=== PATIENT | male | born 1975 | race African-American/Black ===

== ENCOUNTER 2016-07-21 16:58 | Emergency (ER) | payer SELFPAY ==
[~2016-07-21] VITALS: Ht 182.9 cm; Wt 108.9 kg
[2016-07-21] MEDS ORDERED: LISINOPRIL 10 MG TABLET PO ONE (17:30)
--- NOTE | 2016-07-21 17:35 | PHYS DOC ---
Past Medical History Past Medical History: Hypertension Past Surgical History: Other Additional Past Surgical Histo: hernia Alcohol Use: Occasionally Drug Use: Marijuana, Phencyclidine, Other Social History Narrative: "WET" Adult General Chief Complaint Chief Complaint: DRUG ABUSE HPI HPI Patient is a 41 year old male presents emergency room via EMS transport after bystanders found the patient in the parking lot "not looking right". Evidently, patient admitted to EMS that he "smoked wet" approximately 3 hours ago. Patient states that he was in the parking lot "enjoying the moment and talking to God". Patient denies any attempted overdose of drugs. He denies any additional congestion. He denies suicidal or homicidal ideation. Of incidental note, patient does have an established history of high blood pressure. He generally takes a lisinopril/hydrochlorothiazide medication daily to control his blood pressure. He states that he stopped taking the medication approximately one month ago. He states that he does have refills at [facility], but has not on to get the medication filled. Review of Systems Review of Systems Constitutional: Denies fever or chills [] Eyes: Denies change in visual acuity, redness, or eye pain [] HENT: Denies nasal congestion or sore throat [] Respiratory: Denies cough or shortness of breath [] Cardiovascular: No additional information not addressed in HPI [] GI: Denies abdominal pain, nausea, vomiting, bloody stools or diarrhea [] : Denies dysuria or hematuria [] Musculoskeletal: Denies back pain or joint pain [] Integument: Denies rash or skin lesions [] Neurologic: Denies headache, focal weakness or sensory changes [] Endocrine: Denies polyuria or polydipsia [] Current Medications Current Medications Current Medications Medications (Trade) Dose Ordered Sig/[facility] Start Time Stop Time Status Last Admin Dose Admin Lisinopril (Prinivil) 10 mg 1X ONCE 07/21/16 17:30 07/21/16 17:31 DC 07/21/16 17:33 10 MG Allergies Allergies Allergies Coded Allergies Type Severity Reaction Last Updated Verified No Known Drug Allergies 07/05/13 No Physical Exam Physical Exam Constitutional: Well developed, well nourished, no acute distress, non-toxic appearance. HENT: Normocephalic, atraumatic, bilateral external ears normal, oropharynx moist, no oral exudates, nose normal. [] Eyes: PERRLA, EOMI, conjunctiva normal, no discharge. [] Neck: Normal range of motion, no tenderness, supple, no stridor. [] Cardiovascular:Heart rate 84 with regular rhythm, no murmur Lungs & Thorax: Bilateral breath sounds clear to auscultation [] Abdomen: Bowel sounds normal, soft, no tenderness, no masses, no pulsatile masses. [] Skin: Warm, dry, no erythema, no rash. Back: No tenderness, no CVA tenderness. [] Extremities: No tenderness, no cyanosis, no clubbing, ROM intact, no edema. [] Neurologic: Patient is alert and oriented 3. He answers questions spontaneously and appropriately. His mood is calm. Cranial nerves II through XII are grossly intact. Patient is able perform rapid alternating movement and [id number] without difficulty. Psychologic: Affect normal, judgement normal, mood normal. [] Current Patient Data Vital Signs Vital Signs Date Time Temp Pulse Resp B/P Pulse Ox O2 Delivery O2 Flow Rate FiO2 07/21/16 17:56 82 16 155/73 99 07/21/16 17:06 98.8 Room Air 98.8 EKG EKG [] Radiology/Procedures Radiology/Procedures [] Course & Med Decision Making Course & Med Decision Making Pertinent Labs and Imaging studies reviewed. (See chart for details) [] Dragon Disclaimer Dragon Disclaimer This electronic medical record was generated, in whole or in part, using a voice recognition dictation system. Departure Departure Impression: Primary Impression: Drug abuse Additional Impression: Hypertension Disposition: 01 HOME, SELF-CARE Condition: STABLE Referrals: NON,STAFF (PCP) Patient Instructions: Drug Abuse, FAQs, Hypertension, [id number] Additional Instructions: 1. Stop using drugs. 2. 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 3. Call your primary care doctor's office tomorrow morning to schedule follow- up appointment. If you do not have one, then please use the pamphlet provided for assistance in finding one. Problem Qualifiers RADHA MATUTE Jul 21, 2016 17:35
[2016-07-21 17:56] VITALS: BP 155/73
== END 2016-07-21 17:57 | disposition home or self-care (01) ==
LOC: ER 16:58
DX: F19.10 Other psychoactive substance abuse, uncomplicated (principal); I10 Essential (primary) hypertension; F12.10 Cannabis abuse, uncomplicated; F16.10 Hallucinogen abuse, uncomplicated; F17.200 Nicotine dependence, unspecified, uncomplicated
CPT/HCPCS: 99284

== ENCOUNTER 2016-11-27 23:46 | Emergency (ER) | payer SELFPAY ==
[~2016-11-27] VITALS: Ht 182.9 cm; Wt 108.9 kg
[2016-11-28] MEDS ORDERED: MORPHINE SULFATE 4 MG/ML DISP.SYRIN. IV ONE ×2 (00:45→01:15)
[2016-11-28] MEDS ORDERED: KETOROLAC 15 MG/ML VIAL. IV ONE ×2 (00:45→01:15)
[2016-11-28] MEDS ORDERED: ONDANSETRON PF 4 MG/2 ML VIAL. IV ONE ×2 (00:45→01:15)
[2016-11-28 02:27] LABS: BASO # 0.1 x10^3/uL (0.0-0.2); BASO % 1 % (0-3); EOS % 4 % (0-3); HEMATOCRIT 39.4 % (39.0-53.0); HEMOGLOBIN 13.3 g/dL (13.0-17.5); LYMPH # 3.1 x10^3/uL (1.0-4.8); LYMPH % 35 % (24-48); MEAN CORPUSCULAR HEMOGLOBIN 29 pg (25-35); MEAN CORPUSCULAR HGB CONC 34 g/dL (31-37); MEAN CORPUSCULAR VOLUME 85 fL (79-100); MONO % 10 % (0-9); NEUT % 51 % (31-73); PLATELET COUNT 303 x10^3/uL (140-400); RED BLOOD COUNT 4.64 x10^6/uL (4.30-5.70); RED CELL DISTRIBUTION WIDTH 12.8 % (11.5-14.5); WHITE BLOOD COUNT 8.9 x10^3/uL (4.0-11.0)
[2016-11-28 02:29] LABS: ALBUMIN 3.4 g/dL (3.4-5.0); ALBUMIN/GLOBULIN RATIO 0.9 (1.0-1.7); CALCIUM 8.9 mg/dL (8.5-10.1); GFR 100.1; POTASSIUM 3.7 mmol/L (3.5-5.1); TOTAL BILIRUBIN 0.4 mg/dL (0.2-1.0); TOTAL PROTEIN 7.2 g/dL (6.4-8.2)
[2016-11-28 03:00] VITALS: BP 155/96
[2016-11-28] MEDS ORDERED: IBUP-1007 PO (03:23)
--- NOTE | 2016-11-28 03:23 | PHYS DOC ---
Past Medical History Past Medical History: High Cholesterol, Hypertension Past Surgical History: Other Additional Past Surgical Histo: hernia repair Alcohol Use: Occasionally Drug Use: None Adult General Chief Complaint Chief Complaint: CHEST PAIN HPI HPI Patient is a 41 year old gentleman who presents today by EMS secondary to chest pain is been intermittent for 2 days. Patient reports she has a history of hypertension he smokes and he drinks. Patient has any drugs. Patient has any history of coronary disease diabetes CHF COPD liver longer kidney problems. Patient denies any abdominal surgery except for an internal hernia repair. Patient has any fevers shakes chills nausea vomiting diarrhea cough abdominal pain shortness of breath dysuria frequency or urgency. Patient reports he had left-sided sharp chest pain that increases with deep inspiration. Patient also complaining of right shoulder pain that occurred after falling approximately 2 weeks ago he was helping his friend. Patient reports he tripped and he hit concrete his right shoulder. Patient reports she is currently chest pain-free. Patient's physical exam is remarkable for 100% reproducible tenderness to palpation to his left anterior chest wall. Patient's lungs were clear. Abdomen was soft nontender no rebound or guarding. Patient does have bruising to his right shoulder however he has full range of motion there is no deformity noted. He shouldn't has been resting comfortably in the room without any discomfort. Patient is sleepy most of his stay. Patient is a heavy sleeper and snores very heavily. Patient's pulse ox is 99% on room air when he is alert and awake. Patient's pulse ox was dropped to the low 90s when he sleeping and sonorous. Arousable. Patient's alert awake oriented 3. Cranial nerves II-12 intact. Nonfocal neuro exam. Assessment and plan. This is a 41-year-old gentleman who presents here today complaining of sharp pleuritic left-sided chest pain and right older pain for approximately 2 weeks. Patient reports pain started after a fall when he was helping a friend of his move. Patient is clinically and hemodynamically stable this time. Patient be discharged home in stable condition. Patient does not present with any signs or symptoms that will require further ER workup. I suspicion for cardiac etiology for this gentleman is chest pain is extremely low. Patient's EKG revealed normal sinus rhythm with nonspecific ST-T wave abnormalities. Patient's CBC CMP troponin and chest x-ray were all within normal limits. Review of Systems Review of Systems Constitutional: Denies fever or chills [] Eyes: Denies change in visual acuity, redness, or eye pain [] HENT: Denies nasal congestion or sore throat [] All other review systems are negative except as documented in the history of present illness portion. Current Medications Current Medications Current Medications Medications (Trade) Dose Ordered Sig/Tiff Start Time Stop Time Status Last Admin Dose Admin Ketorolac Tromethamine (Toradol) 15 mg 1X ONCE 11/28/16 01:15 11/28/16 02:07 DC Morphine Sulfate 4 mg 1X ONCE 11/28/16 01:15 11/28/16 02:07 DC Ondansetron HCl (Zofran) 4 mg 1X ONCE 11/28/16 01:15 11/28/16 02:07 DC Allergies Allergies Allergies Coded Allergies Type Severity Reaction Last Updated Verified No Known Drug Allergies 07/05/13 No Physical Exam Physical Exam Constitutional: Well developed, well nourished, no acute distress, non-toxic appearance. [] HENT: Normocephalic, atraumatic, bilateral external ears normal, oropharynx moist, no oral exudates, nose normal. [] Eyes: PERRLA, EOMI, conjunctiva normal, no discharge. [] Neck: Normal range of motion, no tenderness, supple, no stridor. [] Cardiovascular:Heart rate regular rhythm, Lungs & Thorax: Bilateral breath sounds clear to auscultation [] Abdomen: Bowel sounds normal, soft, no tenderness, no masses, no pulsatile masses. [] Skin: Warm, dry, no erythema, no rash. [] Back: No tenderness, no CVA tenderness. [] Extremities: Tender to his right upper extremity near the shoulder was bruising. , no cyanosis, no clubbing, ROM intact, no edema. [] Neurologic: Alert and oriented X 3, normal motor function, normal sensory function, no focal deficits noted. [] Psychologic: Affect normal, judgement normal, mood normal. [] Current Patient Data Vital Signs Vital Signs Date Time Temp Pulse Resp B/P (MAP) Pulse Ox O2 Delivery O2 Flow Rate FiO2 11/28/16 01:49 76 12 146/89 (108) 90 Nasal Cannula 5.0 11/27/16 23:46 98.6 98.6 Lab Values Laboratory Tests Test 11/28/16 00:34 11/28/16 01:00 11/28/16 02:03 White Blood Count 8.9 x10^3/uL (4.0-11.0) Red Blood Count 4.64 x10^6/uL (4.30-5.70) Hemoglobin 13.3 g/dL (13.0-17.5) Hematocrit 39.4 % (39.0-53.0) Mean Corpuscular Volume 85 fL (79-100) Mean Corpuscular Hemoglobin 29 pg (25-35) Mean Corpuscular Hemoglobin Concent 34 g/dL (31-37) Red Cell Distribution Width 12.8 % (11.5-14.5) Platelet Count 303 x10^3/uL (140-400) Neutrophils (%) (Auto) 51 % (31-73) Lymphocytes (%) (Auto) 35 % (24-48) Monocytes (%) (Auto) 10 % (0-9) H Eosinophils (%) (Auto) 4 % (0-3) H Basophils (%) (Auto) 1 % (0-3) Neutrophils # (Auto) 4.5 x10^3uL (1.8-7.7) Lymphocytes # (Auto) 3.1 x10^3/uL (1.0-4.8) Monocytes # (Auto) 0.9 x10^3/uL (0.0-1.1) Eosinophils # (Auto) 0.3 x10^3/uL (0.0-0.7) Basophils # (Auto) 0.1 x10^3/uL (0.0-0.2) Troponin I Quantitative < 0.017 ng/mL (0.000-0.055) NS-Dzd-M-Type Natriuretic Peptide 26 pg/mL (0-124) Sodium Level 140 mmol/L (136-145) Potassium Level 3.7 mmol/L (3.5-5.1) Chloride Level 104 mmol/L (98-107) Carbon Dioxide Level 29 mmol/L (21-32) Anion Gap 7 (6-14) Blood Urea Nitrogen 18 mg/dL (8-26) Creatinine 1.0 mg/dL (0.7-1.3) Estimated GFR (Cockcroft-Gault) 100.1 BUN/Creatinine Ratio 18 (6-20) Glucose Level 129 mg/dL (70-99) H Calcium Level 8.9 mg/dL (8.5-10.1) Total Bilirubin 0.4 mg/dL (0.2-1.0) Aspartate Amino Transferase (AST) 25 U/L (15-37) Alanine Aminotransferase (ALT) 39 U/L (16-63) Alkaline Phosphatase 76 U/L (46-116) Total Protein 7.2 g/dL (6.4-8.2) Albumin 3.4 g/dL (3.4-5.0) Albumin/Globulin Ratio 0.9 (1.0-1.7) L Lipase 139 U/L (73-393) Glucose (Fingerstick) 109 mg/dL (70-99) H Laboratory Tests 11/28/16 00:34 Laboratory Tests 11/28/16 01:00 EKG EKG [] Radiology/Procedures Radiology/Procedures [] Course & Med Decision Making Course & Med Decision Making Pertinent Labs and Imaging studies reviewed. (See chart for details) [] Dragon Disclaimer Dragon Disclaimer This electronic medical record was generated, in whole or in part, using a voice recognition dictation system. Departure Departure Impression: Primary Impression: Pleuritic chest pain Additional Impressions: Chest wall pain Right shoulder pain Homelessness Disposition: 01 HOME, SELF-CARE Condition: IMPROVED Referrals: NO PCP (PCP) Patient Instructions: Chest Wall Pain Scripts Ibuprofen (IBUPROFEN) 600 Mg Tablet 600 MG PO PRN Q6HRS Y for PAIN, #20 TAB Prov: ZUHAIR OROZCO MD 11/28/16 Problem Qualifiers ZUHAIR OROZCO MD November 28, 2016 03:23
--- NOTE | 2016-11-28 09:54 | RAD ---
Indication: Right shoulder pain. Time of exam 0206 hours. 2 views right shoulder demonstrate normal glenohumeral and acromioclavicular alignment. The acromiohumeral space is normal. No fracture dislocation is identified. There are two amorphous calcific densities lying adjacent to the humeral head in the region of the greater tuberosity consistent with calcific tendinitis of the rotator cuff. Impression: Calcific tendinitis of the rotator cuff. No acute bony abnormality is detected.
--- NOTE | 2016-11-28 10:39 | EKG ---
[facility] [address] [place] [address] Test Date: 2016-11-27 Test Time: 23:55:38 Pat Name: ALONDRA BERGER Department: Room: Gender: M [employer]: : 1975 Requested By: ZUHAIR OROZCO Order Number: [id number] Reading MD: Memo Velazquez Measurements Intervals [place] Rate: 83 P: 28 CT: 162 QRS: 6 QRSD: 96 T: -3 QT: 360 QTc: 429 Interpretive Statements SINUS RHYTHM NON-SPECIFIC ST/T CHANGES Electronically Signed On 12-02-2016 9:29:48 CDT by Memo Velazquez
--- NOTE | 2016-11-28 13:00 | RAD ---
Sammy Gan Exam performed: One view chest. Indication: Chest pain and shortness of air Date of Service: 11/28/2016 9:57 AM Comparison: None available. Single AP upright portable view chest findings: Cardiomediastinal silhouette is within limits of normal. No acute infiltrates, effusion or pneumothorax is detected. Calcified nodule in the right midlung. The bony structures are normal. Impression: No acute cardiopulmonary process is detected. MTDD
== END 2016-11-28 03:45 | disposition home or self-care (01) ==
LOC: ER 23:46
DX: R07.89 Other chest pain (principal); S40.011A Contusion of right shoulder, initial encounter; I10 Essential (primary) hypertension; E78.00 Pure hypercholesterolemia, unspecified; F17.200 Nicotine dependence, unspecified, uncomplicated; Z59.0 Homelessness; W01.198A Fall on same level from slipping, tripping and stumbling with subsequent striking against other object, initial encounter; Y93.89 Activity, other specified; Y92.89 Other specified places as the place of occurrence of the external cause; Y99.8 Other external cause status
CPT/HCPCS: 36415; 71010; 73030; 80053; 82947; 83690; 83880; 84484; 85027; 93005; 99285-25

== ENCOUNTER 2017-08-27 04:38 | Emergency (ER) | payer SELFPAY ==
[2017-08-27 05:35] LABS: BARBITURATES NEG (NEG); BENZODIAZEPINES NEG (NEG); CANNABINOIDS POS (NEG); COCAINE NEG (NEG); METHADONE NEG (NEG); OPIATES NEG (NEG); PHENCYCLIDINE POS (NEG)
[2017-08-27 05:36] LABS: AMPHETAMINE/METHAMPHETAMINE NEG (NEG); ETHANOL, URINE NEG (NEG)
== END 2017-08-27 06:47 | disposition home or self-care (01) ==
LOC: ER 04:38
DX: F16.10 Hallucinogen abuse, uncomplicated (principal); F12.10 Cannabis abuse, uncomplicated; I10 Essential (primary) hypertension; E78.00 Pure hypercholesterolemia, unspecified
CPT/HCPCS: 80307; 93005; 99285

== ENCOUNTER 2018-10-21 00:01 | Emergency (ER) | payer SELFPAY ==
[~2018-10-21] VITALS: Ht 182.9 cm; Wt 113.4 kg
[~2018-10-21 00:01] MED LIST: HYDR12.58 PO; IBUP-1007 PO
[2018-10-21 00:40] LABS: BASO # 0.1 x10^3/uL (0.0-0.2); BASO % 1 % (0-3); EOS # 0.2 x10^3/uL (0.0-0.7); EOS % 3 % (0-3); HEMATOCRIT 44.4 % (39.0-53.0); HEMOGLOBIN 14.5 g/dL (13.0-17.5); LYMPH # 3.5 x10^3/uL (1.0-4.8); LYMPH % 40 % (24-48); MEAN CORPUSCULAR HEMOGLOBIN 28 pg (25-35); MEAN CORPUSCULAR HGB CONC 33 g/dL (31-37); MEAN CORPUSCULAR VOLUME 85 fL (79-100); MONO # 0.8 x10^3/uL (0.0-1.1); MONO % 9 % (0-9); NEUT # 4.1 x10^3uL (1.8-7.7); NEUT % 48 % (31-73); PLATELET COUNT 348 x10^3/uL (140-400); RED BLOOD COUNT 5.22 x10^6/uL (4.30-5.70); RED CELL DISTRIBUTION WIDTH 12.9 % (11.5-14.5); WHITE BLOOD COUNT 8.7 x10^3/uL (4.0-11.0)
[2018-10-21 00:50] LABS: CALCIUM 9.6 mg/dL (8.5-10.1); CREATININE 0.9 mg/dL (0.7-1.3); POTASSIUM 3.8 mmol/L (3.5-5.1)
[2018-10-21 00:57] LABS: ALBUMIN 3.9 g/dL (3.4-5.0); ALBUMIN/GLOBULIN RATIO 0.9 (1.0-1.7); MAGNESIUM 2.4 mg/dL (1.8-2.4); TOTAL BILIRUBIN 0.4 mg/dL (0.2-1.0); TOTAL PROTEIN 8.1 g/dL (6.4-8.2)
[2018-10-21] MEDS ORDERED: ASPIRIN 325 MG TABLET PO ONE (01:00)
--- NOTE | 2018-10-21 02:54 | PHYS DOC ---
Past Medical History Past Medical History: High Cholesterol, Hypertension Past Surgical History: No Surgical History Additional Past Surgical Histo: hernia repair Alcohol Use: Occasionally Drug Use: Marijuana Adult General Chief Complaint Chief Complaint: CHEST PAIN HPI HPI Patient is a 43 year old male who presents with chest pain. Patient states he has had chest pain for two weeks. The pain is a sharp pain located substernally with no radiation. He is unable to attribute any specific action or incidents to cause the pain. Nothing seems to relieve his pain. Nothing makes it worse. He denies any lightheadedness, dizziness, diaphoresis, or shortness of breath. [] Review of Systems Review of Systems Constitutional: Denies fever or chills [] Eyes: Denies redness, or eye pain [] HENT: Denies nasal congestion or sore throat [] Respiratory: Denies cough or shortness of breath [] Cardiovascular: Reports chest pain, denies palpitations[] GI: Denies abdominal pain, nausea, vomiting [] : Denies dysuria or hematuria [] Musculoskeletal: Denies back pain or joint pain [] Integument: Denies rash or skin lesions [] Neurologic: Denies headache, focal weakness[] Complete systems were reviewed and found to be within normal limits, except as documented in this note. Current Medications Current Medications Current Medications Medications (Trade) Dose Ordered Sig/[facility] Start Time Stop Time Status Last Admin Dose Admin Aspirin (Bob Aspirin) 325 mg 1X ONCE 10/21/18 01:00 10/21/18 01:01 DC 10/21/18 01:32 325 MG Allergies Allergies Allergies Coded Allergies Type Severity Reaction Last Updated Verified No Known Drug Allergies 07/05/13 No Physical Exam Physical Exam Constitutional: No acute distress, non-toxic appearance. [] HENT: Normocephalic, atraumatic. [] Eyes: EOMI, conjunctiva normal, no discharge. [] Neck: Normal range of motion, no tenderness, supple, no stridor. [] Cardiovascular:Heart rate regular rhythm, no murmur [] Lungs & Thorax: Bilateral breath sounds clear to auscultation, no rhonchi, rales, or wheezes [] Abdomen: Bowel sounds normal, soft, no tenderness. [] Skin: Warm, dry, no erythema. [] Back: No tenderness, no CVA tenderness. [] Extremities: No tenderness, no cyanosis, no edema. [] Neurologic: Alert and oriented X 3, no focal deficits noted. [] Psychologic: Affect normal, mood normal. [] Current Patient Data Vital Signs Vital Signs Date Time Temp Pulse Resp B/P (MAP) Pulse Ox O2 Delivery O2 Flow Rate FiO2 10/21/18 00:01 98.0 78 20 150/90 (110) 97 Room Air 98.0 Lab Values Laboratory Tests Test 10/21/18 00:10 10/21/18 01:53 White Blood Count 8.7 x10^3/uL (4.0-11.0) Red Blood Count 5.22 x10^6/uL (4.30-5.70) Hemoglobin 14.5 g/dL (13.0-17.5) Hematocrit 44.4 % (39.0-53.0) Mean Corpuscular Volume 85 fL (79-100) Mean Corpuscular Hemoglobin 28 pg (25-35) Mean Corpuscular Hemoglobin Concent 33 g/dL (31-37) Red Cell Distribution Width 12.9 % (11.5-14.5) Platelet Count 348 x10^3/uL (140-400) Neutrophils (%) (Auto) 48 % (31-73) Lymphocytes (%) (Auto) 40 % (24-48) Monocytes (%) (Auto) 9 % (0-9) Eosinophils (%) (Auto) 3 % (0-3) Basophils (%) (Auto) 1 % (0-3) Neutrophils # (Auto) 4.1 x10^3uL (1.8-7.7) Lymphocytes # (Auto) 3.5 x10^3/uL (1.0-4.8) Monocytes # (Auto) 0.8 x10^3/uL (0.0-1.1) Eosinophils # (Auto) 0.2 x10^3/uL (0.0-0.7) Basophils # (Auto) 0.1 x10^3/uL (0.0-0.2) Sodium Level 143 mmol/L (136-145) Potassium Level 3.8 mmol/L (3.5-5.1) Chloride Level 103 mmol/L (98-107) Carbon Dioxide Level 28 mmol/L (21-32) Anion Gap 12 (6-14) Blood Urea Nitrogen 17 mg/dL (8-26) Creatinine 0.9 mg/dL (0.7-1.3) Estimated GFR (Cockcroft-Gault) 112.0 BUN/Creatinine Ratio 19 (6-20) Glucose Level 110 mg/dL (70-99) H Calcium Level 9.6 mg/dL (8.5-10.1) Magnesium Level 2.4 mg/dL (1.8-2.4) Total Bilirubin 0.4 mg/dL (0.2-1.0) Aspartate Amino Transferase (AST) 28 U/L (15-37) Alanine Aminotransferase (ALT) 45 U/L (16-63) Alkaline Phosphatase 84 U/L (46-116) Creatine Kinase 477 U/L (39-308) H Creatine Kinase MB (Mass) 5.7 ng/mL (0.0-3.6) H Creatine Kinase MB Relative Index 1.2 % (0-4) Troponin I Quantitative < 0.017 ng/mL (0.000-0.055) < 0.017 ng/mL (0.000-0.055) JQ-Xxv-H-Type Natriuretic Peptide 14 pg/mL (0-124) Total Protein 8.1 g/dL (6.4-8.2) Albumin 3.9 g/dL (3.4-5.0) Albumin/Globulin Ratio 0.9 (1.0-1.7) L Lipase 110 U/L (73-393) Ethyl Alcohol Level < 10 mg/dL (0-10) Laboratory Tests 10/21/18 00:10 Laboratory Tests 10/21/18 00:10 EKG EKG @0009 NSR at 78bpm, NO ST elevation, J point elevation V2, incomplete RBBB Radiology/Procedures Radiology/Procedures Two-view chest x-ray Preliminary read by ER physician showed no acute pulmonary process.[] Course & Med Decision Making Course & Med Decision Making 43-year-old male presents emergency department via EMS for intermittent chest pain. Patient reported the pain has been present for two weeks. He denied any trauma or shortness of breath. Pertinent Labs and Imaging studies reviewed. Chest x-ray showed no acute pulmonary process. 2 separate troponin levels were negative. Symptomatic treatment provided with interval improvement. Patient stable for discharge with outpatient follow-up with PCP. Discussed findings and plan with patient and family, who acknowledge understanding and agreement. (See chart for details) [] Dragon Disclaimer Dragon Disclaimer This electronic medical record was generated, in whole or in part, using a voice recognition dictation system. Departure Departure Impression: Primary Impression: Chest pain Disposition: HOME, SELF-CARE Condition: STABLE Referrals: NO PCP (PCP) IVETT PHAM MD Patient Instructions: Chest Pain (Nonspecific), Onrb-yd-Dsct Problem Qualifiers Primary Impression: Chest pain Chest pain type: unspecified Qualified Codes: R07.9 - Chest pain, unspecified DINA RAYMOND DO Oct 21, 2018 02:54
[2018-10-21 03:11] VITALS: BP 132/92
--- NOTE | 2018-10-21 03:52 | RAD ---
CHEST PA LATERAL Technique: PA and lateral views of the chest were obtained. Clinical History: cough Comparison: None. Findings: The heart and pulmonary vasculature appear within normal limits. The lungs are clear. The pleural margins are clear. Impression: No acute chest process is seen. Electronically signed by: Jack Méndez III, MD (10/21/2018 3:49 AM) [facility]
--- NOTE | 2018-10-21 07:51 | EKG ---
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
== END 2018-10-21 03:34 | disposition home or self-care (01) ==
LOC: ER 00:01
DX: R07.89 Other chest pain (principal); E78.00 Pure hypercholesterolemia, unspecified; I10 Essential (primary) hypertension
CPT/HCPCS: 36415; 71046; 80053; 82553; 83690; 83735; 83880; 84484; 85025; 93005; 99284; G0480

== ENCOUNTER 2019-08-31 03:57 | Emergency (ER) | payer SELFPAY ==
[~2019-08-31] VITALS: Ht 177.8 cm; Wt 130.5 kg
[2019-08-31] MEDS ORDERED: AMMONIA AROMATIC 15% INHALANT AMPUL. ONE (04:25)
--- NOTE | 2019-08-31 04:32 | RAD ---
CHEST AP ONLY Clinical Indication: Chest pain Comparison: Two-view chest October 21, 2018. Findings: The cardiomediastinal silhouette is normal. Stable calcified granuloma right upper lung. Stable tiny calcified granuloma left lung apex. Lungs are clear. There is no pneumothorax. No pleural effusion is appreciated. No acute bone abnormality. IMPRESSION: No acute cardiopulmonary process. Electronically signed by: Rodrick Mixon MD (08/31/2019 4:29 AM) [id number]
--- NOTE | 2019-08-31 04:39 | PHYS DOC ---
Past Medical History Past Medical History: High Cholesterol, Hypertension Past Surgical History: No Surgical History Additional Past Surgical Histo: hernia repair Smoking Status: Current Every Day Smoker Alcohol Use: Occasionally Drug Use: Marijuana Social History Narrative: HX OF PCP Adult General Chief Complaint Chief Complaint: CHEST PAIN HPI HPI Patient is a 44 year old -[place] homeless male with history of high blood pressure, dyslipidemia who presents with his pain. Chest pain began this morning after being arrested at local gas station. Patient pain during transfer. No nausea vomiting, shortness of breath. Patient apparently been seen at multiple ED is for chest pain in the past several weeks. Patient states he is discharged from [facility] in treatment earlier this week. No history of coronary disease. Does report sleep apnea with difficulty staying awake. Patient is a current smoker smells of EtOH. No other acute symptoms or complaints. [] Review of Systems Review of Systems Review of symptoms as per history of present illness. All other review symptoms are negative. All other systems were reviewed and found to be within normal limits, except as documented in this note. Current Medications Current Medications Current Medications Medications (Trade) Dose Ordered Sig/Tiff Start Time Stop Time Status Last Admin Dose Admin Ammonia (Aromatic Spirit) (Amoply) 1 each STK-MED ONCE 08/31/19 04:25 08/31/19 04:25 DC Allergies Allergies Allergies Coded Allergies Type Severity Reaction Last Updated Verified No Known Drug Allergies 07/05/13 No Physical Exam Physical Exam Constitutional: Well developed, well nourished, no acute distress, non-toxic appearance. [] HENT: Normocephalic, atraumatic, bilateral external ears normal, oropharynx moist, no oral exudates, nose normal. [] Eyes: PERRLA, EOMI, conjunctiva normal, no discharge. [] Neck: Normal range of motion, no tenderness, supple, no stridor. [] Cardiovascular:Heart rate regular rhythm, no murmur [] Lungs & Thorax: Bilateral breath sounds clear to auscultation [] Abdomen: Bowel sounds normal, soft, no tenderness [] Skin: Warm, dry, no erythema, no rash. [] Back: No tenderness. [] Extremities: No tenderness, no edema. [] Neurologic: Alert and oriented X 3, cranial nerves II through XII grossly intact, normal motor function, normal sensory function, no focal deficits noted. [] Psychologic: Affect normal, judgement normal, mood normal. [] Current Patient Data Vital Signs Vital Signs Date Time Temp Pulse Resp B/P (MAP) Pulse Ox O2 Delivery O2 Flow Rate FiO2 08/31/19 03:58 98.9 92 16 144/86 (105) 95 Room Air 98.9 Lab Values Laboratory Tests Test 08/31/19 04:28 Glucose (Fingerstick) 120 mg/dL (70-99) H EKG EKG [EKG: revoewd normal sinus rhythm, no acute ST-T changes compared to EKG dated 10/22/18] Radiology/Procedures Radiology/Procedures [] Course & Med Decision Making Course & Med Decision Making Pertinent Labs and Imaging studies reviewed. (See chart for details) [post-Incarceration chest pain EKG, no acute ST-T wave changes and unchanged from a year ago. I-STAT troponin reviewed. Recommendations are discharge home with local PCP follow-up.] Dragon Disclaimer Dragon Disclaimer This electronic medical record was generated, in whole or in part, using a voice recognition dictation system. Departure Departure Impression: Primary Impression: Chest pain Disposition: 01 HOME, SELF-CARE Condition: STABLE Referrals: NO PCP (PCP) Patient Instructions: Chest Pain (Nonspecific) Additional Instructions: You were evaluated in the emergency department for chest pain. EKG and were reviewed and are normal. The exact cause of your symptoms has not been determined. Please follow-up with local primary care for further evaluation and treatment. HAMIDA BROWN DO Aug 31, 2019 04:39
[2019-08-31 05:17] VITALS: BP 171/85
--- NOTE | 2019-08-31 06:06 | EKG ---
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
== END 2019-08-31 05:20 | disposition home or self-care (01) ==
LOC: ER 03:57
DX: R07.89 Other chest pain (principal); G47.30 Sleep apnea, unspecified; E78.00 Pure hypercholesterolemia, unspecified; I10 Essential (primary) hypertension; Z98.890 Other specified postprocedural states; F17.200 Nicotine dependence, unspecified, uncomplicated
CPT/HCPCS: 71045; 82962; 84484; 93005; 99285-25

== ENCOUNTER 2019-10-02 04:12 | Emergency (ER) | payer OTHER | END 2019-10-02 04:34 | disposition home or self-care (01) | LOC: ER 04:12 | DX: R07.89 Other chest pain (principal) | CPT/HCPCS: 99283 ==

== ENCOUNTER 2019-12-01 02:40 | Emergency (ER) | payer OTHER ==
--- NOTE | 2019-12-01 06:32 | EKG ---
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
== END 2019-12-01 03:11 | disposition home or self-care (01) ==
LOC: ER 02:40
DX: S60.811A Abrasion of right wrist, initial encounter (principal); I10 Essential (primary) hypertension; Z87.891 Personal history of nicotine dependence; X58.XXXA Exposure to other specified factors, initial encounter; Y93.89 Activity, other specified; Y92.89 Other specified places as the place of occurrence of the external cause; Y99.8 Other external cause status
CPT/HCPCS: 93005; 99283

== ENCOUNTER 2020-01-25 02:06 | Emergency (ER) | payer SELFPAY ==
[~2020-01-25] VITALS: Ht 180.3 cm; Wt 110.0 kg
--- NOTE | 2020-01-25 02:33 | RAD ---
CHEST AP ONLY INDICATION: Reason: PAIN / Spl. Instructions: / History: . COMPARISON STUDY: 08/31/2019. FINDINGS: Lungs: Low lung volume. Bilateral perihilar opacities Pleura: No pleural effusion or pneumothorax. Heart and Mediastinum: Cardiomegaly. Tortuosity of the thoracic aorta. IMPRESSION: Low lung volume with bilateral perihilar opacities, which may reflect interstitial edema and/or subsegmental atelectasis. Electronically signed by: Uvaldo Dudley MD (01/25/2020 2:30 AM) [facility]
[2020-01-25 02:38] LABS: CALCIUM 8.7 mg/dL (8.5-10.1); CREATININE 1.2 mg/dL (0.7-1.3); POTASSIUM 3.7 mmol/L (3.5-5.1)
[2020-01-25 02:44] LABS: BASO # 0.1 x10^3/uL (0.0-0.2); BASO % 1 % (0-3); EOS # 0.3 x10^3/uL (0.0-0.7); EOS % 4 % (0-3); HEMOGLOBIN 13.7 g/dL (13.0-17.5); LYMPH # 3.1 x10^3/uL (1.0-4.8); LYMPH % 38 % (24-48); MEAN CORPUSCULAR HEMOGLOBIN 28 pg (25-35); MEAN CORPUSCULAR HGB CONC 33 g/dL (31-37); MEAN CORPUSCULAR VOLUME 84 fL (79-100); MONO # 0.8 x10^3/uL (0.0-1.1); MONO % 10 % (0-9); NEUT # 3.9 x10^3/uL (1.8-7.7); NEUT % 47 % (31-73); PLATELET COUNT 319 x10^3/uL (140-400); RED BLOOD COUNT 4.87 x10^6/uL (4.30-5.70); RED CELL DISTRIBUTION WIDTH 13.5 % (11.5-14.5); WHITE BLOOD COUNT 8.2 x10^3/uL (4.0-11.0)
[2020-01-25 02:44] LABS: ALBUMIN 3.8 g/dL (3.4-5.0); TOTAL PROTEIN 7.5 g/dL (6.4-8.2)
[2020-01-25 02:52] LABS: BILIRUBIN,URINE NEGATIVE (NEG); CLARITY,URINE CLOUDY; COLOR,URINE YELLOW; NITRITE,URINE NEGATIVE (NEG); PROTEIN,URINE NEGATIVE (NEG-TRACE)
[2020-01-25] MEDS ORDERED: NALOXONE 0.4 MG/ML VIAL. IV ONE (03:00)
[2020-01-25 03:03] LABS: RBC,URINE 20-40 /HPF (0-2); SQUAMOUS EPITHELIAL CELL,UR MANY /LPF
[2020-01-25 03:04] LABS: BACTERIA,URINE 0 /HPF (0-FEW); WBC,URINE RARE /HPF (0-4)
[2020-01-25 03:09] LABS: BARBITURATES NEG (NEG); BENZODIAZEPINES NEG (NEG); CANNABINOIDS NEG (NEG); COCAINE NEG (NEG); METHADONE NEG (NEG); OPIATES NEG (NEG); PHENCYCLIDINE POS (NEG)
[2020-01-25 03:11] LABS: AMPHETAMINE/METHAMPHETAMINE NEG (NEG)
--- NOTE | 2020-01-25 03:23 | RAD ---
CT HEAD WO CONTRAST Date: 01/25/2020 2:52 AM Clinical Indication: Reason: ALTERED MENTAL STATUS / Spl. Instructions: / History: Comparison: None. Technique: 5 mm axial tomographic images were obtained of the head without contrast. These were viewed on brain and bone windows. One or more of the following dose reduction techniques were utilized: Automated exposure control (AEC), Adjustment of mA and/or kV according to patient size, Use of iterative reconstruction technique such as ASiR, CT scan done according to ALARA and image gently/image wisely Findings: Left inferior frontal and right greater than left anterior temporal lobe encephalomalacia. No intra- or extra-axial mass or fluid collection. No acute hemorrhage. The ventricles are normal in size, shape, and morphology. The gannon-white matter junction is normal. The subarachnoid cisterns are patent. The visualized paranasal sinuses are normal. Nasal septum is deviated to the right. Age-indeterminate displaced left nasal bone fracture. The visualized portions of the orbits and globes are normal. The mastoid air cells are clear. Impression: 1. No acute hemorrhage, mass, or loss of gannon-white differentiation. 2. 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 3. Age-indeterminate displaced left nasal bone fracture. Correlate for focal tenderness.. Electronically signed by: Uvaldo Dudley MD (01/25/2020 3:20 AM) [facility]
--- NOTE | 2020-01-25 03:48 | PHYS DOC ---
Past Medical History Past Medical History: High Cholesterol, Hypertension (JEIMMA BUTCHER DO) Past Surgical History: No Surgical History Additional Past Surgical Histo: hernia repair (JEMIMA BUTCHER DO) Smoking Status: Current Every Day Smoker Alcohol Use: Occasionally Drug Use: Marijuana (JEMIMA BUTCHER DO) General Adult EDM: Chief Complaint: CHEST PAIN HPI: HPI: Patient is a 44 year old male brought by EMS with a chief complaint of chest pain. EMS state that patient is homeless and called EMS because he had chest pain. Patient is sleepy and is unknown if patient drank alcohol tonight or took any drugs. Patient denies obvious injuries. (JEMIMA BUTCHER DO) Review of Systems: Review of Systems: Constitutional: Denies fever or chills. [] Eyes: Denies change in visual acuity. [] HENT: Denies nasal congestion or sore throat. [] Respiratory: Denies cough or shortness of breath. [] Cardiovascular: Denies chest pain or edema. [] GI: Denies abdominal pain, nausea, vomiting, bloody stools or diarrhea. [] : Denies dysuria. [] Musculoskeletal: Denies back pain or joint pain. [] Integument: Denies rash. [] Neurologic: Denies headache, focal weakness or sensory changes. [] Endocrine: Denies polyuria or polydipsia. [] Lymphatic: Denies swollen glands. [] Psychiatric: Denies depression or anxiety. [] (JEMIMA BUTCHER DO) Heart Score: Risk Factors: Risk Factors: DM, Current or recent (<one month) smoker, HTN, HLP, family hi story of CAD, obesity. Risk Scores: Score 0 - 3: 2.5% MACE over next 6 weeks - Discharge Home Score 4 - 6: 20.3% MACE over next 6 weeks - Admit for Clinical Observation Score 7 - 10: 72.7% MACE over next 6 weeks - Early Invasive Strategies (JEMIMA BUTCHER DO) HEART Score for Chest Pain: HEART Score for Chest Pain Response (Comments) Value History Slighlty/Non-Suspicious 0 ECG Normal 0 Age < 45 0 Risk Factors 1 or 2 Risk Factors 1 Troponin < Normal Limit 0 Total 1 Current Medications: Current Medications Medications (Trade) Dose Ordered Sig/Tiff Start Time Stop Time Status Last Admin Dose Admin Naloxone HCl (Narcan) 0.4 mg 1X ONCE 01/25/20 03:00 01/25/20 03:01 DC (JEMIMA BUTCHER DO) Allergies: Allergies: Allergies Coded Allergies Type Severity Reaction Last Updated Verified No Known Drug Allergies 07/05/13 No (JEMIMA BUTCHER DO) Physical Exam: PE: Constitutional: Well developed, well nourished, no acute distress, non-toxic appearance. [] HENT: Normocephalic, atraumatic, bilateral external ears normal, oropharynx moist, no oral exudates, nose normal. [] Eyes: PERRLA, EOMI, conjunctiva normal, no discharge. [] Neck: Normal range of motion, no tenderness, supple, no stridor. [] Cardiovascular:Heart rate regular rhythm, no murmur [] Lungs & Thorax: Bilateral breath sounds clear to auscultation [] Abdomen: Bowel sounds normal, soft, no tenderness, no masses, no pulsatile masses. [] Skin: Warm, dry, no erythema, no rash. [] Back: No tenderness, no CVA tenderness. [] Extremities: No tenderness, no cyanosis, no clubbing, ROM intact, no edema. [] Neurologic: Alert and oriented X 3, normal motor function, normal sensory function, no focal deficits noted. [] Psychologic: Affect normal, judgement normal, mood normal. [] (JEMIMA BUTCHER DO) Current Patient Data: Labs: Laboratory Tests Test 01/25/20 02:22 01/25/20 02:36 01/25/20 02:42 Sodium Level 143 mmol/L (136-145) Potassium Level 3.7 mmol/L (3.5-5.1) Chloride Level 105 mmol/L (98-107) Carbon Dioxide Level 32 mmol/L (21-32) Anion Gap 6 (6-14) Blood Urea Nitrogen 14 mg/dL (8-26) Creatinine 1.2 mg/dL (0.7-1.3) Estimated GFR (Cockcroft-Gault) 80.0 BUN/Creatinine Ratio 12 (6-20) Glucose Level 110 mg/dL (70-99) H Calcium Level 8.7 mg/dL (8.5-10.1) Total Bilirubin 1.0 mg/dL (0.2-1.0) Aspartate Amino Transferase (AST) 29 U/L (15-37) Alanine Aminotransferase (ALT) 44 U/L (16-63) Alkaline Phosphatase 86 U/L (46-116) Troponin I Quantitative < 0.017 ng/mL (0.000-0.055) Total Protein 7.5 g/dL (6.4-8.2) Albumin 3.8 g/dL (3.4-5.0) Albumin/Globulin Ratio 1.0 (1.0-1.7) Ethyl Alcohol Level < 10 mg/dL (0-10) White Blood Count 8.2 x10^3/uL (4.0-11.0) Red Blood Count 4.87 x10^6/uL (4.30-5.70) Hemoglobin 13.7 g/dL (13.0-17.5) Hematocrit 41.0 % (39.0-53.0) Mean Corpuscular Volume 84 fL (79-100) Mean Corpuscular Hemoglobin 28 pg (25-35) Mean Corpuscular Hemoglobin Concent 33 g/dL (31-37) Red Cell Distribution Width 13.5 % (11.5-14.5) Platelet Count 319 x10^3/uL (140-400) Neutrophils (%) (Auto) 47 % (31-73) Lymphocytes (%) (Auto) 38 % (24-48) Monocytes (%) (Auto) 10 % (0-9) H Eosinophils (%) (Auto) 4 % (0-3) H Basophils (%) (Auto) 1 % (0-3) Neutrophils # (Auto) 3.9 x10^3/uL (1.8-7.7) Lymphocytes # (Auto) 3.1 x10^3/uL (1.0-4.8) Monocytes # (Auto) 0.8 x10^3/uL (0.0-1.1) Eosinophils # (Auto) 0.3 x10^3/uL (0.0-0.7) Basophils # (Auto) 0.1 x10^3/uL (0.0-0.2) Lactic Acid Level 0.6 mmol/L (0.4-2.0) Urine Collection Type Unknown Urine Color Yellow Urine Clarity Cloudy Urine pH 6.0 (<5.0-8.0) Urine Specific [place] >=1.030 (1.000-1.030) Urine Protein Negative mg/dL (NEG-TRACE) Urine Glucose (UA) Negative mg/dL (NEG) Urine Ketones (Stick) Negative mg/dL (NEG) Urine Blood Moderate (NEG) Urine Nitrite Negative (NEG) Urine Bilirubin Negative (NEG) Urine Urobilinogen Dipstick 1.0 mg/dL (0.2 mg/dL) Urine Leukocyte Esterase Negative (NEG) Urine RBC 20-40 /HPF (0-2) Urine WBC Rare /HPF (0-4) Urine Squamous Epithelial Cells Many /LPF Urine Bacteria 0 /HPF (0-FEW) Urine Mucus Marked /LPF Urine Opiates Screen Neg (NEG) Urine Methadone Screen Neg (NEG) Urine Barbiturates Neg (NEG) Urine Phencyclidine Screen Pos (NEG) Urine Amphetamine/Methamphetamine Neg (NEG) Urine Benzodiazepines Screen Neg (NEG) Urine Cocaine Screen Neg (NEG) Urine Cannabinoids Screen Neg (NEG) Urine Ethyl Alcohol Neg (NEG) Laboratory Tests 01/25/20 02:36 Laboratory Tests 01/25/20 02:22 Vital Signs: Vital Signs Date Time Temp Pulse Resp B/P (MAP) Pulse Ox O2 Delivery O2 Flow Rate FiO2 01/25/20 02:07 98.2 74 8 159/99 (119) 94 Room Air 98.2 (JEMIMA BUTCHER DO) EKG: EKG: [EKG interpretation 2: 12 AM on 01/25/2020 HR: 74 Sinus rhythm Regular intervals Normal axis Nonspecific ST changes ] (JEMIMA BUTCHER DO) Radiology/Procedures: Radiology/Procedures: [] Impression: CXR FINDINGS: Lungs: Low lung volume. Bilateral perihilar opacities Pleura: No pleural effusion or pneumothorax. Heart and Mediastinum: Cardiomegaly. Tortuosity of the thoracic aorta. IMPRESSION: Low lung volume with bilateral perihilar opacities, which may reflect interstitial edema and/or subsegmental atelectasis. CT HEAD Findings: Left inferior frontal and right greater than left anterior temporal lobe encephalomalacia. No intra- or extra-axial mass or fluid collection. No acute hemorrhage. The ventricles are normal in size, shape, and morphology. The gannon-white matter junction is normal. The subarachnoid cisterns are patent. The visualized paranasal sinuses are normal. Nasal septum is deviated to the right. Age-indeterminate displaced left nasal bone fracture. The visualized portions of the orbits and globes are normal. The mastoid air cells are clear. Impression: 1. No acute hemorrhage, mass, or loss of gannon-white differentiation. 2. 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 3. Age-indeterminate displaced left nasal bone fracture. Correlate for focal tenderness.. (JEMIMA BUTCHER DO) Course & Med Decision Making: Course & Med Decision Making Pertinent Labs and Imaging studies reviewed. (See chart for details) Ordered labs, chest x-ray, EKG, troponin Also ordered CT head as patient is falling asleep CT head does not show any acute intracranial process There is however age-indeterminate left nasal fracture Labs are within normal limits Troponin is negative EKG does not show any acute changes Chest x-ray does not show any acute cardiopulmonary process Patient's UDS is positive for PCP Will order repeat troponin. PATIENT CARE TURNED OVER TO DR TYLER AT SHIFT CHANGE. (JEMIMA BUTCHER DO) Dragon Disclaimer: Dragon Disclaimer: This electronic medical record was generated, in whole or in part, using a voice recognition dictation system. (JEMIMA BUTCHER DO) Departure Departure Impression: Primary Impression: Substance abuse Additional Impressions: HTN (hypertension) Chest pain Disposition: HOME, SELF-CARE Condition: IMPROVED Referrals: DINA BROWN MD please call this doctor for outpatient follow up Patient Instructions: Chest Pain (Nonspecific), Hypertension, Substance Abuse-B rief Scripts Lisinopril (LISINOPRIL) 20 Mg Tablet 1 TAB PO DAILY, #30 TAB 5 Refills Prov: REINA TYLER DO 01/25/20 Justicifation of Admission Dx: Justifications for Admission: Justification of Admission Dx: N/A (REINA TYLER DO) JEMIMA BUTCHER DO Jan 25, 2020 03:48 REINA TYLER DO Jan 25, 2020 09:29
[2020-01-25] MEDS ORDERED: cloNIDine HCL 0.1 MG TABLET PO ONE (07:45)
--- NOTE | 2020-01-25 09:08 | EKG ---
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
[2020-01-25 09:25] VITALS: BP 175/102
[2020-01-25] MEDS ORDERED: LISI-334 PO (09:28)
== END 2020-01-25 09:36 | disposition home or self-care (01) ==
LOC: ER 02:06
DX: I10 Essential (primary) hypertension (principal); R07.89 Other chest pain; F12.10 Cannabis abuse, uncomplicated; E78.00 Pure hypercholesterolemia, unspecified; F17.200 Nicotine dependence, unspecified, uncomplicated; Z98.890 Other specified postprocedural states; Z59.0 Homelessness
CPT/HCPCS: 36415; 70450; 71045; 80053; 80307; 81001; 83605; 84484; 85025; 93005; 99285; G0480

== ENCOUNTER 2020-05-09 02:36 | Emergency (ER) | payer SELFPAY ==
[~2020-05-09] VITALS: Ht 182.9 cm; Wt 118.2 kg
[~2020-05-09 02:36] MED LIST changes: +LISI-334 PO
[2020-05-09 03:04] LABS: BASO # 0.1 x10^3/uL (0.0-0.2); BASO % 1 % (0-3); EOS # 0.3 x10^3/uL (0.0-0.7); EOS % 4 % (0-3); HEMATOCRIT 40.3 % (39.0-53.0); HEMOGLOBIN 13.6 g/dL (13.0-17.5); LYMPH # 3.1 x10^3/uL (1.0-4.8); LYMPH % 43 % (24-48); MEAN CORPUSCULAR HEMOGLOBIN 28 pg (25-35); MEAN CORPUSCULAR HGB CONC 34 g/dL (31-37); MEAN CORPUSCULAR VOLUME 84 fL (79-100); MONO # 0.6 x10^3/uL (0.0-1.1); MONO % 9 % (0-9); NEUT # 3.1 x10^3/uL (1.8-7.7); NEUT % 44 % (31-73); PLATELET COUNT 322 x10^3/uL (140-400); RED BLOOD COUNT 4.81 x10^6/uL (4.30-5.70); RED CELL DISTRIBUTION WIDTH 12.9 % (11.5-14.5); WHITE BLOOD COUNT 7.1 x10^3/uL (4.0-11.0)
--- NOTE | 2020-05-09 03:05 | PHYS DOC ---
Past Medical History Past Medical History: High Cholesterol, Hypertension Past Surgical History: Other Additional Past Surgical Histo: HERNIA Smoking Status: Smoker Current Stat Unk[place] Alcohol Use: None Drug Use: Marijuana General Adult EDM: Chief Complaint: CHEST PAIN HPI: HPI: Patient is a 45 year old male with a past medical history hypertension presents with a chief complaint of chest pain. Patient states he has had chest pain for 1 week it is located in the center of his chest is been constant but fluctuates in intensity. He denies any associated nausea vomiting or shortness of breath. Patient denies any exacerbating or alleviating factors. Patient is currently homeless. States he was walking to [place] when he called 911. On exam patient is in no acute distress. EKG performed shows no acute abnormalities. Review of Systems: Review of Systems: Constitutional: Denies fever or chills. [] Eyes: Denies change in visual acuity. [] HENT: Denies nasal congestion or sore throat. [] Respiratory: Denies cough or shortness of breath. [] Cardiovascular: Denies chest pain or edema. [] GI: Denies abdominal pain, nausea, vomiting, bloody stools or diarrhea. [] : Denies dysuria. [] Musculoskeletal: Denies back pain or joint pain. [] Integument: Denies rash. [] Neurologic: Denies headache, focal weakness or sensory changes. [] Endocrine: Denies polyuria or polydipsia. [] Lymphatic: Denies swollen glands. [] Psychiatric: Denies depression or anxiety. [] Heart Score: HEART Score for Chest Pain: HEART Score for Chest Pain Response (Comments) Value History Slighlty/Non-Suspicious 0 ECG Normal 0 Age < 45 0 Risk Factors 1 or 2 Risk Factors 1 Troponin < Normal Limit 0 Total 1 Risk Factors: Risk Factors: DM, Current or recent (<one month) smoker, HTN, HLP, family history of CAD, obesity. Risk Scores: Score 0 - 3: 2.5% MACE over next 6 weeks - Discharge Home Score 4 - 6: 20.3% MACE over next 6 weeks - Admit for Clinical Observation Score 7 - 10: 72.7% MACE over next 6 weeks - Early Invasive Strategies Allergies: Allergies: Allergies Coded Allergies Type Severity Reaction Last Updated Verified No Known Drug Allergies 07/05/13 No Physical Exam: PE: Constitutional: Well developed, well nourished, no acute distress, non-toxic appearance. [] HENT: Normocephalic, atraumatic, bilateral external ears normal, oropharynx moist, no oral exudates, nose normal. [] Eyes: PERRLA, EOMI, conjunctiva normal, no discharge. [] Neck: Normal range of motion, no tenderness, supple, no stridor. [] Cardiovascular:Heart rate regular rhythm, no murmur [] Lungs & Thorax: Bilateral breath sounds clear to auscultation [] Abdomen: Bowel sounds normal, soft, no tenderness, no masses, no pulsatile masses. [] Skin: Warm, dry, no erythema, no rash. [] Back: No tenderness, no CVA tenderness. [] Extremities: No tenderness, no cyanosis, no clubbing, ROM intact, no edema. [] Neurologic: Alert and oriented X 3, normal motor function, normal sensory function, no focal deficits noted. [] Psychologic: Affect normal, judgement normal, mood normal. [] Current Patient Data: Vital Signs: Vital Signs Date Time Temp Pulse Resp B/P (MAP) Pulse Ox O2 Delivery O2 Flow Rate FiO2 05/09/20 02:36 98.2 76 16 156/87 (110) 95 Room Air 98.2 EKG: EKG: time 0240 rate 75 normal sinus rhythm no stemi[] Radiology/Procedures: Radiology/Procedures: [] Impression: HISTORY: Chest pain AP view was taken of the chest. Patient's taken a poor inspiration. Heart is normal in size. There are no definite infiltrates. IMPRESSION: 1. Poor inspiration. 2. No acute infiltrates. Electronically signed by: Carrington Hawk MD (05/09/2020 4:08 AM) [id number] Course & Med Decision Making: Course & Med Decision Making Pertinent Labs and Imaging studies reviewed. (See chart for details) [] Dragon Disclaimer: Dragon Disclaimer: This electronic medical record was generated, in whole or in part, using a voice recognition dictation system. Departure Departure Impression: Primary Impression: Chest pain Referrals: NO PCP (PCP) WEST ROCHA DO May 09, 2020 03:05
[2020-05-09 03:14] LABS: CALCIUM 8.5 mg/dL (8.5-10.1); GFR 98.2; POTASSIUM 3.7 mmol/L (3.5-5.1)
[2020-05-09 03:22] LABS: ALBUMIN 3.5 g/dL (3.4-5.0); TOTAL BILIRUBIN 0.3 mg/dL (0.2-1.0); TOTAL PROTEIN 7.1 g/dL (6.4-8.2)
[2020-05-09] MEDS ORDERED: ASPIRIN CHEWABLE 81 MG TABLET. PO ONE (03:45)
[2020-05-09] MEDS: KETOROLAC 60 MG/2 ML VIAL. IM ONE ×2 (03:56→05:00)
--- NOTE | 2020-05-09 04:11 | RAD ---
AP chest. HISTORY: Chest pain AP view was taken of the chest. Patient's taken a poor inspiration. Heart is normal in size. There are no definite infiltrates. IMPRESSION: 1. Poor inspiration. 2. No acute infiltrates. Electronically signed by: Carrington Hawk MD (05/09/2020 4:08 AM) [id number]
[2020-05-09] MEDS ORDERED: ONDANSETRON PF 4 MG/2 ML VIAL. IV PRN (04:45)
[2020-05-09] MEDS ORDERED: MORPHINE SULFATE 4 MG/ML VIAL. IV PRN (04:45)
[2020-05-09 05:04] VITALS: BP 194/93
--- NOTE | 2020-05-09 05:13 | EKG ---
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
== END 2020-05-09 05:55 | disposition home or self-care (01) ==
LOC: ER 02:36
DX: R07.89 Other chest pain (principal); I10 Essential (primary) hypertension; E78.00 Pure hypercholesterolemia, unspecified; F17.200 Nicotine dependence, unspecified, uncomplicated
CPT/HCPCS: 36415; 71045; 80053; 84484; 85025; 93005; 99285; J1885

== ENCOUNTER 2020-05-10 23:19 | Emergency (ER) | payer SELFPAY ==
[~2020-05-10] VITALS: Ht 182.9 cm; Wt 118.0 kg
[2020-05-10] MEDS ORDERED: IOHEXOL 350 MG/ML 100 ML VIAL. ONE (23:42)
--- NOTE | 2020-05-10 23:44 | PHYS DOC ---
Past Medical History Past Medical History: High Cholesterol, Hypertension Past Surgical History: Other Additional Past Surgical Histo: HERNIA Smoking Status: Smoker Current Stat Unkno Alcohol Use: None Drug Use: Marijuana General Adult EDM: Chief Complaint: CHEST PAIN HPI: HPI: History obtained from patient. Patient is a 45-year-old male with a past medical history notable for hypertension, hyperlipidemia, tobacco abuse who presents with chief complaint of chest pain. He states he had constant sharp chest pain for the past week. He states it is substernal and occasionally radiates to his epigastric region. He has not tried any medicine to help with this. He states nothing seems to alleviate or exacerbate his symptoms. Denies any associated shortness of breath. Notes one episode of vomiting earlier today. Denies any diaphoresis. Denies any exertional component to his symptoms. Denies any history of coronary artery disease or invasive cardiac testing. Denies drug or alcohol abuse. Denies back pain. Denies syncope. Denies any feelings of irregular rapid heartbeat. Denies cough or fever. Denies known exposure to coronavirus. No other complaints. Review of Systems: Review of Systems: Constitutional: Denies fever or chills. [] Eyes: Denies change in visual acuity. [] HENT: Denies nasal congestion or sore throat. [] Respiratory: Denies cough or shortness of breath. [] Cardiovascular: Positive for chest pain GI: Denies abdominal pain, nausea, vomiting, bloody stools or diarrhea. [] : Denies dysuria. [] Musculoskeletal: Denies back pain or joint pain. [] Integument: Denies rash. [] Neurologic: Denies headache, focal weakness or sensory changes. [] Endocrine: Denies polyuria or polydipsia. [] Lymphatic: Denies swollen glands. [] Psychiatric: Denies depression or anxiety. [] Heart Score: HEART Score for Chest Pain: HEART Score for Chest Pain Response (Comments) Value History Slighlty/Non-Suspicious 0 ECG Nonspecific Repolarizatio 1 Age < 45 0 Risk Factors 1 or 2 Risk Factors 1 Troponin < Normal Limit 0 Total 2 Risk Factors: Risk Factors: DM, Current or recent (<one month) smoker, HTN, HLP, family history of CAD, obesity. Risk Scores: Score 0 - 3: 2.5% MACE over next 6 weeks - Discharge Home Score 4 - 6: 20.3% MACE over next 6 weeks - Admit for Clinical Observation Score 7 - 10: 72.7% MACE over next 6 weeks - Early Invasive Strategies Current Medications: Current Medications Medications (Trade) Dose Ordered Sig/Tiff Start Time Stop Time Status Last Admin Dose Admin Iohexol (Omnipaque 350 Mg/ml) 100 ml 1X ONCE 05/10/20 23:45 05/10/20 23:46 UNV Allergies: Allergies: Allergies Coded Allergies Type Severity Reaction Last Updated Verified No Known Drug Allergies 07/05/13 No Physical Exam: PE: Constitutional: Well developed, well nourished, no acute distress, non-toxic appearance. [] HENT: Normocephalic, atraumatic, bilateral external ears normal, oropharynx moist, no oral exudates, nose normal. [] Eyes: PERRLA, EOMI, conjunctiva normal, no discharge. [] Neck: Normal range of motion, no tenderness, supple, no stridor. [] Cardiovascular:Heart rate regular rhythm, no murmur [] Lungs & Thorax: Bilateral breath sounds clear to auscultation [] Abdomen: Soft, nontender, nonacute abdomen. No involuntary guarding or rigidity noted. No acute peritonitis. Skin: Warm, dry, no erythema, no rash. [] Back: No tenderness, no CVA tenderness. [] Extremities: No tenderness, no cyanosis, no clubbing, ROM intact, no edema. [] Neurologic: Alert and oriented X 3, normal motor function, normal sensory function, no focal deficits noted. [] Psychologic: Affect normal, judgement normal, mood normal. [] Current Patient Data: Labs: Laboratory Tests Test 05/10/20 23:34 White Blood Count 7.3 x10^3/uL Red Blood Count 5.15 x10^6/uL Hemoglobin 14.6 g/dL Hematocrit 43.0 % Mean Corpuscular Volume 83 fL Mean Corpuscular Hemoglobin 28 pg Mean Corpuscular Hemoglobin Concent 34 g/dL Red Cell Distribution Width 13.1 % Platelet Count 344 x10^3/uL Neutrophils (%) (Auto) 44 % Lymphocytes (%) (Auto) 44 % Monocytes (%) (Auto) 8 % Eosinophils (%) (Auto) 3 % Basophils (%) (Auto) 1 % Neutrophils # (Auto) 3.2 x10^3/uL Lymphocytes # (Auto) 3.2 x10^3/uL Monocytes # (Auto) 0.6 x10^3/uL Eosinophils # (Auto) 0.2 x10^3/uL Basophils # (Auto) 0.1 x10^3/uL Sodium Level 143 mmol/L Potassium Level 3.7 mmol/L Chloride Level 105 mmol/L Carbon Dioxide Level 29 mmol/L Anion Gap 9 Blood Urea Nitrogen 15 mg/dL Creatinine 1.0 mg/dL Estimated GFR (Cockcroft-Gault) 98.2 BUN/Creatinine Ratio 15 Glucose Level 121 mg/dL Calcium Level 9.1 mg/dL Total Bilirubin 0.4 mg/dL Aspartate Amino Transf (AST/SGOT) 23 U/L Alanine Aminotransferase (ALT/SGPT) 38 U/L Alkaline Phosphatase 90 U/L Troponin I Quantitative < 0.017 ng/mL Total Protein 7.6 g/dL Albumin 3.6 g/dL Albumin/Globulin Ratio 0.9 Lipase 117 U/L Current Medications Medications (Trade) Dose Ordered Sig/Tiff Route PRN Reason Start Time Stop Time Status Last Admin Dose Admin Iohexol (Omnipaque 350 Mg/ml) 100 ml 1X ONCE IV 05/11/20 00:00 05/11/20 00:01 DC 05/10/20 23:43 Info (CONTRAST GIVEN -- Rx MONITORING) 1 each PRN DAILY PRN MC SEE COMMENTS 05/10/20 23:45 05/12/20 23:44 Iohexol (Omnipaque 350 Mg/ml) 100 ml STK-MED ONCE .ROUTE 05/10/20 23:42 05/10/20 23:43 DC Vital Signs: Vital Signs Date Time Temp Pulse Resp B/P (MAP) Pulse Ox O2 Delivery O2 Flow Rate FiO2 05/10/20 23:20 98.5 89 20 178/92 (120) 95 Room Air 98.5 EKG: EKG: [] EKG consistent with normal sinus rhythm. Ventricular rate of 82 bpm. Rogers normal. Flipped T waves noted in the inferior lateral precordial leads. No ST segment elevation appreciated. Flipped T waves new from previous. Radiology/Procedures: Radiology/Procedures: [facility] [address] [place] [address] IMAGING REPORT Signed PATIENT: ALONDRA BERGER Kain ACCOUNT: [id number] : 1975 LOCATION: ER AGE: 45 SEX: M EXAM STATUS: REG ER ORD. PHYSICIAN: DEBORA YANG DO REASON: CHEST PAIN, eval for PE PROCEDURE: CT ANGIOGRAPHY CHEST CT arteriogram of the chest HISTORY: Chest pain CT arteriogram of the chest was done using 100 mL Omnipaque 350 contrast. Sagittal and coronal MIP images were reconstructed. Thyroid is homogeneous. Visualized portions the liver and spleen are unremarkable. Adrenal glands are normal. There is a calcified granuloma in the right upper lobe. There is a 4 mm nodule in the right middle lobe on image #[address] 6 series 3. Fleischner Society guidelines recommend an optional one-year follow-up for high risk individuals. Contrast opacification of the aorta and pulmonary veins is better than the pulmonary arteries. There is no central pulmonary embolus. IMPRESSION: 1. Somewhat limited due to late timing of images relative to the bolus. 2. No central pulmonary embolus. 3. No acute infiltrates. 4. Small middle lobe pulmonary nodule. PQRS Compliance Statement: One or more of the following individualized dose reduction techniques were utilized for this examination: 1. Automated exposure control 2. Adjustment of the mA and/or kV according to patient size 3. Use of iterative reconstruction technique Electronically signed by: Carrington Guillaume MD (05/11/2020 12:25 AM) [id number] DICTATED and SIGNED BY: CARRINGTON GUILLAUME MD DATE: 05/11/20 0025 [] Course & Med Decision Making: Course & Med Decision Making Pertinent Labs and Imaging studies reviewed. (See chart for details) [] Patient is a 45-year-old male who presents with chief complaint of constant chest pain over the past week. Denies any exertional component to his symptoms. EKG shows nonspecific T wave abnormalities. Troponin negative. I do not feel repeat troponin is indicated given he states the pain is been constant for 1 week. He does state however he is currently asymptomatic. CT PE study was obtained and was negative for acute abnormality. Pulmonary nodule identified and patient notified of this. Patient is overall appropriate for outpatient ma hermilo my opinion. Low suspicion for ACS. Low risk heart score. Return precautions were discussed and understood. Was instructed follow-up with his primary care physician in the next 2 to 3 days. Smoking cessation counseling was administered. Stable for discharge. I provided verbal discharge instructions regarding their emergency department diagnosis. If you had any diagnostic studies ( Labs or Xray's, CAT scan, Ultrasound ) have your PCP (Primary Care Physician) review them with you since there may be results that require further follow up or investigation. Prognosis, expected clinical course, and return precautions were reviewed. I answered the patients questions and instructed them to return if any new or worsening symptoms develop. The patient expressed understanding of the instructions and reported that all of their questions had been answered. Scarosso Disclaimer: Scarosso Disclaimer: This electronic medical record was generated, in whole or in part, using a voice recognition dictation system. Departure Departure Impression: Primary Impression: Chest pain Qualified Codes: R07.9 - Chest pain, unspecified Additional Impression: Pulmonary nodule Disposition: 01 DC HOME SELF CARE/HOMELESS Condition: STABLE Referrals: NO PCP (PCP) Patient Instructions: Chest Pain (Nonspecific), Pulmonary Nodule Additional Instructions: Please follow-up with your primary care physician in the next 2 to 3 days. [facility] [address] [place] [address] [facility] [address] [place] [address] [facility] [address] [facility] [place] [address] [facility] [address] [place] [address] [facility] [address] [place] [address] [address] [place] [address] [address] [place] [address] [place] [address] [facility] [address] [place] [address] [facility] [address] [place] [address] [facility] [address] [place] [address] DEBORA YANG DO May 10, 2020 23:44
[2020-05-10 23:45] LABS: BASO # 0.1 x10^3/uL (0.0-0.2); BASO % 1 % (0-3); EOS # 0.2 x10^3/uL (0.0-0.7); EOS % 3 % (0-3); HEMOGLOBIN 14.6 g/dL (13.0-17.5); LYMPH # 3.2 x10^3/uL (1.0-4.8); LYMPH % 44 % (24-48); MEAN CORPUSCULAR HEMOGLOBIN 28 pg (25-35); MEAN CORPUSCULAR HGB CONC 34 g/dL (31-37); MEAN CORPUSCULAR VOLUME 83 fL (79-100); MONO # 0.6 x10^3/uL (0.0-1.1); MONO % 8 % (0-9); NEUT # 3.2 x10^3/uL (1.8-7.7); NEUT % 44 % (31-73); PLATELET COUNT 344 x10^3/uL (140-400); RED BLOOD COUNT 5.15 x10^6/uL (4.30-5.70); RED CELL DISTRIBUTION WIDTH 13.1 % (11.5-14.5); WHITE BLOOD COUNT 7.3 x10^3/uL (4.0-11.0)
[2020-05-10] MEDS ORDERED: CONTRAST GIVEN. MC PRN (23:45)
[2020-05-10 23:55] LABS: CALCIUM 9.1 mg/dL (8.5-10.1); GFR 98.2; POTASSIUM 3.7 mmol/L (3.5-5.1)
[2020-05-11] MEDS ORDERED: IOHEXOL 350 MG/ML 100 ML VIAL. IV ONE
[2020-05-11 00:02] LABS: ALBUMIN 3.6 g/dL (3.4-5.0); ALBUMIN/GLOBULIN RATIO 0.9 (1.0-1.7); TOTAL BILIRUBIN 0.4 mg/dL (0.2-1.0); TOTAL PROTEIN 7.6 g/dL (6.4-8.2)
--- NOTE | 2020-05-11 00:28 | RAD ---
CT arteriogram of the chest HISTORY: Chest pain CT arteriogram of the chest was done using 100 mL Omnipaque 350 contrast. Sagittal and coronal MIP images were reconstructed. Thyroid is homogeneous. Visualized portions the liver and spleen are unremarkable. Adrenal glands are normal. There is a calcified granuloma in the right upper lobe. There is a 4 mm nodule in the right middle lobe on image #[address] 6 series 3. Fleischner Society guidelines recommend an optional one-year follow-up for high risk individuals. Contrast opacification of the aorta and pulmonary veins is better than the pulmonary arteries. There is no central pulmonary embolus. IMPRESSION: 1. Somewhat limited due to late timing of images relative to the bolus. 2. No central pulmonary embolus. 3. No acute infiltrates. 4. Small middle lobe pulmonary nodule. PQRS Compliance Statement: One or more of the following individualized dose reduction techniques were utilized for this examination: 1. Automated exposure control 2. Adjustment of the mA and/or kV according to patient size 3. Use of iterative reconstruction technique Electronically signed by: Carrington Hawk MD (05/11/2020 12:25 AM) [id number]
[2020-05-11 01:00] VITALS: BP 143/80
== END 2020-05-11 01:37 | disposition home or self-care (01) ==
LOC: ER 23:19
DX: R07.2 Precordial pain (principal); R91.1 Solitary pulmonary nodule; E78.00 Pure hypercholesterolemia, unspecified; I10 Essential (primary) hypertension; Z72.0 Tobacco use
CPT/HCPCS: 36415; 71275; 80053; 83690; 84484; 85025; 93005; 99285; Q9967

== ENCOUNTER 2020-08-13 01:56 | Emergency (ER) | payer SELFPAY ==
[~2020-08-13] VITALS: Ht 182.9 cm; Wt 104.5 kg
--- NOTE | 2020-08-13 03:25 | PHYS DOC ---
Past Medical History Past Medical History: High Cholesterol, Hypertension Additional Past Medical Histor: CHEST PAIN (RAFIA VASQUEZ MD) Past Surgical History: Other Additional Past Surgical Histo: HERNIA (RAFIA VASQUEZ MD) Smoking Status: Smoker Current Stat Unkno Alcohol Use: None Drug Use: Marijuana Social History Narrative: PATIENT STATED PCP (RAFIA VASQUEZ MD) Adult General Chief Complaint Chief Complaint: ALCOHOL INTOXICATION HPI HPI Patient is a 45 year old male with a known past medical history of polysubstance abuse presents emergency department for altered mental status and possible intoxication. EMS state that he was wandering outside in a good [place] brought him into the hotel where he saw that he was acting bizarrely. Patient admits to alcohol and PCPs use. Otherwise having difficulty providing significant history (RAFIA VASQUEZ MD) Review of Systems Review of Systems Constitutional: Denies fever or chills [] Eyes: Denies change in visual acuity, redness, or eye pain [] HENT: Denies nasal congestion or sore throat [] Respiratory: Denies cough or shortness of breath [] Cardiovascular: No additional information not addressed in HPI [] GI: Denies abdominal pain, nausea, vomiting, bloody stools or diarrhea [] : Denies dysuria or hematuria [] Musculoskeletal: Denies back pain or joint pain [] Integument: Denies rash or skin lesions [] Neurologic: Denies headache, focal weakness or sensory changes [] Endocrine: Denies polyuria or polydipsia [] All other systems were reviewed and found to be within normal limits, except as documented in this note. (RAFIA VASQUEZ MD) Allergies Allergies Allergies Coded Allergies Type Severity Reaction Last Updated Verified No Known Drug Allergies 07/05/13 No (REINA TYLER DO) Physical Exam Physical Exam Constitutional: Well developed, well nourished, no acute distress, non-toxic appearance. [] HENT: Normocephalic, atraumatic, bilateral external ears normal, oropharynx moist, no oral exudates, nose normal. [] Eyes: PERRLA, EOMI, rotary nystagmus conjunctiva normal, no discharge. [] Neck: Normal range of motion, no tenderness, supple, no stridor. [] Cardiovascular:Heart rate regular rhythm, no murmur [] Lungs & Thorax: Bilateral breath sounds clear to auscultation [] Abdomen: Bowel sounds normal, soft, no tenderness, no masses, no pulsatile masses. [] Skin: Warm, dry, no erythema, no rash. [] Back: No tenderness, no CVA tenderness. [] Extremities: No tenderness, no cyanosis, no clubbing, ROM intact, no edema. [] Neurologic: normal motor function, normal sensory function, no focal deficits noted. [] Psychologic: Affect slow, judgement erratic, mood normal. [] (RAFIA VASQUEZ MD) Current Patient Data Vital Signs Vital Signs Date Time Temp Pulse Resp B/P (MAP) Pulse Ox O2 Delivery O2 Flow Rate FiO2 08/13/20 06:32 76 13 164/98 (120) 92 Room Air 08/13/20 02:00 98.6 98.6 (REINA TYLER DO) Lab Values Laboratory Tests Test 08/13/20 02:55 White Blood Count 6.4 x10^3/uL (4.0-11.0) Red Blood Count 4.87 x10^6/uL (4.30-5.70) Hemoglobin 13.9 g/dL (13.0-17.5) Hematocrit 41.0 % (39.0-53.0) Mean Corpuscular Volume 84 fL (79-100) Mean Corpuscular Hemoglobin 29 pg (25-35) Mean Corpuscular Hemoglobin Concent 34 g/dL (31-37) Red Cell Distribution Width 12.8 % (11.5-14.5) Platelet Count 321 x10^3/uL (140-400) Neutrophils (%) (Auto) 55 % (31-73) Lymphocytes (%) (Auto) 32 % (24-48) Monocytes (%) (Auto) 9 % (0-9) Eosinophils (%) (Auto) 3 % (0-3) Basophils (%) (Auto) 1 % (0-3) Neutrophils # (Auto) 3.6 x10^3/uL (1.8-7.7) Lymphocytes # (Auto) 2.0 x10^3/uL (1.0-4.8) Monocytes # (Auto) 0.6 x10^3/uL (0.0-1.1) Eosinophils # (Auto) 0.2 x10^3/uL (0.0-0.7) Basophils # (Auto) 0.0 x10^3/uL (0.0-0.2) Sodium Level 142 mmol/L (136-145) Potassium Level 3.9 mmol/L (3.5-5.1) Chloride Level 105 mmol/L (98-107) Carbon Dioxide Level 29 mmol/L (21-32) Anion Gap 8 (6-14) Blood Urea Nitrogen 17 mg/dL (8-26) Creatinine 0.9 mg/dL (0.7-1.3) Estimated GFR (Cockcroft-Gault) 110.9 Glucose Level 102 mg/dL (70-99) H Calcium Level 9.0 mg/dL (8.5-10.1) Ethyl Alcohol Level < 10 mg/dL (0-10) Laboratory Tests 08/13/20 02:55 Laboratory Tests 08/13/20 02:55 (REINA TYLER DO) EKG EKG [] (RAFIA VASQUEZ MD) Radiology/Procedures Radiology/Procedures [] (RAFIA VASQUEZ MD) Course & Med Decision Making Course & Med Decision Making Pertinent Labs and Imaging studies reviewed. (See chart for details) 45M with apparent PCP intoxication and ETOH intoxication. Will obtain basic labs and monitor for sobriety. (RAFIA VASQUEZ MD) Course & Med Decision Making Patient was awake alert, denies suicidal ideation, will discharge him home from the ER. (REINA TYLER DO) Dragon Disclaimer Dragon Disclaimer This electronic medical record was generated, in whole or in part, using a voice recognition dictation system. (RAFIA VASQUEZ MD) Departure Departure Impression: Primary Impression: Bizarre behavior Additional Impression: Substance abuse Disposition: 01 DC HOME SELF CARE/HOMELESS Condition: IMPROVED Referrals: NO PCP (PCP) Patient Instructions: Substance Abuse-Brief Additional Instructions: [facility] [address] [place] [address] [facility] [address] [place] [address] [facility] [address] [facility] [place] [address] [facility] [address] [place] [address] [facility] [address] [address] [address] [place] [address] [place] [address] [address] [place] [address] [place] [address] [facility] [address] [place] [address] [facility] [address] [place] [address] [facility] [address] [place] [address] Problem Qualifiers RAFIA VASQUEZ MD Aug 13, 2020 03:25 REINA TYLER DO Aug 13, 2020 07:07
[2020-08-13 03:47] LABS: BASO % 1 % (0-3); EOS # 0.2 x10^3/uL (0.0-0.7); EOS % 3 % (0-3); HEMOGLOBIN 13.9 g/dL (13.0-17.5); LYMPH % 32 % (24-48); MEAN CORPUSCULAR HEMOGLOBIN 29 pg (25-35); MEAN CORPUSCULAR HGB CONC 34 g/dL (31-37); MEAN CORPUSCULAR VOLUME 84 fL (79-100); MONO # 0.6 x10^3/uL (0.0-1.1); MONO % 9 % (0-9); NEUT # 3.6 x10^3/uL (1.8-7.7); NEUT % 55 % (31-73); PLATELET COUNT 321 x10^3/uL (140-400); RED BLOOD COUNT 4.87 x10^6/uL (4.30-5.70); RED CELL DISTRIBUTION WIDTH 12.8 % (11.5-14.5); WHITE BLOOD COUNT 6.4 x10^3/uL (4.0-11.0)
[2020-08-13 04:02] LABS: CREATININE 0.9 mg/dL (0.7-1.3); GFR 110.9; POTASSIUM 3.9 mmol/L (3.5-5.1)
[2020-08-13 06:32] VITALS: BP 164/98
== END 2020-08-13 07:40 | disposition home or self-care (01) ==
LOC: ER 01:56
DX: R46.1 Bizarre personal appearance (principal); F12.10 Cannabis abuse, uncomplicated; R41.82 Altered mental status, unspecified; E78.00 Pure hypercholesterolemia, unspecified; I10 Essential (primary) hypertension; R07.89 Other chest pain; Z98.890 Other specified postprocedural states
CPT/HCPCS: 36415; 80048; 85025; 99285; G0480

== ENCOUNTER 2020-12-04 09:19 | Emergency (ER) | payer SELFPAY ==
[~2020-12-04] VITALS: Ht 182.9 cm; Wt 102.0 kg
[~2020-12-04 09:19] MED LIST changes: -LISI-334 PO; +LISI20TA18 PO
[2020-12-04 12:23] LABS: BARBITURATES NEG (NEG); BENZODIAZEPINES NEG (NEG); CANNABINOIDS NEG (NEG); COCAINE POS (NEG); METHADONE NEG (NEG); OPIATES NEG (NEG); PHENCYCLIDINE POS (NEG)
[2020-12-04 12:24] LABS: AMPHETAMINE/METHAMPHETAMINE NEG (NEG)
--- NOTE | 2020-12-04 14:20 | PHYS DOC ---
Past Medical History Past Medical History: High Cholesterol, Hypertension Additional Past Medical Histor: SLEEP APNEA Past Surgical History: Other Additional Past Surgical Histo: HERNIA Smoking Status: Current Every Day Smoker Alcohol Use: None Drug Use: Marijuana Social History Narrative: PT DENIES ALCOHOL OR DRUG USE General Adult EDM: Chief Complaint: ALTERED MENTAL STATUS HPI: HPI: Patient is a 45 year old who was found sleeping in a lobby of a local hotel. He was not responsive to verbal command so EMS was called. They gave him 2 mg narcan and he woke up. Patient denies suicidal ideation denies homicidal ideation. Patient denied headache, no neck pain, no abdominal pain, no chest pain. Review of Systems: Review of Systems: Constitutional: Denies fever or chills. [] Eyes: Denies change in visual acuity. [] HENT: Denies nasal congestion or sore throat. [] Respiratory: Denies cough or shortness of breath. [] Cardiovascular: Denies chest pain or edema. [] GI: Denies abdominal pain, nausea, vomiting, bloody stools or diarrhea. [] : Denies dysuria. [] Musculoskeletal: Denies back pain or joint pain. [] Integument: Denies rash. [] Neurologic: Denies headache, focal weakness or sensory changes. [] Endocrine: Denies polyuria or polydipsia. [] Lymphatic: Denies swollen glands. [] Psychiatric: Denies depression or anxiety. [] Heart Score: C/O Chest Pain: N/A Risk Factors: Risk Factors: DM, Current or recent (<one month) smoker, HTN, HLP, family history of CAD, obesity. Risk Scores: Score 0 - 3: 2.5% MACE over next 6 weeks - Discharge Home Score 4 - 6: 20.3% MACE over next 6 weeks - Admit for Clinical Observation Score 7 - 10: 72.7% MACE over next 6 weeks - Early Invasive Strategies Allergies: Allergies: Allergies Coded Allergies Type Severity Reaction Last Updated Verified No Known Drug Allergies 07/05/13 No Physical Exam: PE: Constitutional: Well developed, well nourished, no acute distress, patient appears very somnolent HENT: Normocephalic, atraumatic, bilateral external ears normal, oropharynx moist, no oral exudates, nose normal. [] Eyes: PERRLA, EOMI, conjunctiva normal, no discharge. [] Neck: Normal range of motion, no tenderness, supple, no stridor. [] Cardiovascular:Heart rate regular rhythm, no murmur [] Lungs & Thorax: Bilateral breath sounds clear to auscultation [] Abdomen: Bowel sounds normal, soft, no tenderness, no masses, no pulsatile masses. [] Skin: Warm, dry, no erythema, no rash. [] Back: No tenderness, no CVA tenderness. [] Extremities: No tenderness, no cyanosis, no clubbing, ROM intact, no edema. [] Neurologic: Appears somnolent but able to wake up to answer questions and then went back to sleep., normal motor function, normal sensory function, no focal deficits noted. [] Psychologic: Affect normal, judgement normal, mood normal. [] Current Patient Data: Labs: Laboratory Tests Test 12/04/20 09:45 12/04/20 11:58 Glucose (Fingerstick) 102 mg/dL (70-99) H Urine Opiates Screen Neg (NEG) Urine Methadone Screen Neg (NEG) Urine Barbiturates Neg (NEG) Urine Phencyclidine Screen Pos (NEG) Urine Amphetamine/Methamphetamine Neg (NEG) Urine Benzodiazepines Screen Neg (NEG) Urine Cocaine Screen Pos (NEG) Urine Cannabinoids Screen Neg (NEG) Urine Ethyl Alcohol Neg (NEG) Vital Signs: Vital Signs Date Time Temp Pulse Resp B/P (MAP) Pulse Ox O2 Delivery O2 Flow Rate FiO2 12/04/20 09:32 98.0 78 16 151/85 (107) 95 Room Air 98.0 EKG: EKG: [] Radiology/Procedures: Radiology/Procedures: [] Course & Med Decision Making: Course & Med Decision Making Pertinent Labs and Imaging studies reviewed. (See chart for details) Patient is a 45-year-old male who was found unresponsive in a hotel lobby, he woke up after Narcan was given. Drug screen came back positive for cocaine and methamphetamine. Patient was observed in the ER for 6 hours and 30 minutes he was able to protect his airway, his vital signs was normal. His blood sugar was normal as well. Patient was discharged home . Dragon Disclaimer: Dragjoelle Disclaimer: This electronic medical record was generated, in whole or in part, using a voice recognition dictation system. Departure Departure Impression: Primary Impression: Substance abuse Additional Impression: AMS (altered mental status) Disposition: HOME / SELF CARE / HOMELESS Condition: IMPROVED Referrals: NO PCP (PCP) Please follow up with [facility] this week. [address], [address] [place] [address] Phone number: [phone] Patient Instructions: Altered Mental Status, Substance Abuse-Brief Additional Instructions: Thank you for visiting our Emergency Department. We appreciate you trusting us w ith your care. If any additional problems come up don't hesitate to return to visit us. Please follow up with your primary care provider so they can plan additional care if needed and know about the problem that you had. If symptoms worsen come back to the Emergency Department. Any concerning symptoms that start such as chest pain, shortness of air, weakness or numbness on one side of the body, running high fevers or any other concerning symptoms return to the ER. Follow up with [facility] [address] [address] 24-HOUR Crisis Line: [phone] REINA TYLER DO December 04, 2020 14:20
[2020-12-04 14:30] VITALS: BP 157/93
== END 2020-12-04 15:51 | disposition home or self-care (01) ==
LOC: ER 09:19
DX: R41.82 Altered mental status, unspecified (principal); F12.10 Cannabis abuse, uncomplicated; I10 Essential (primary) hypertension; E78.00 Pure hypercholesterolemia, unspecified
CPT/HCPCS: 80307; 82962; 99283; 99285

== ENCOUNTER 2021-01-02 02:40 | Emergency (ER) | payer SELFPAY ==
[~2021-01-02] VITALS: Ht 182.9 cm; Wt 120.0 kg
[2021-01-02 02:43] VITALS: BP 151/92
--- NOTE | 2021-01-02 02:59 | PHYS DOC ---
Past Medical History Past Medical History: High Cholesterol, Hypertension Additional Past Medical Histor: SLEEP APNEA Past Surgical History: Other Additional Past Surgical Histo: HERNIA Smoking Status: Current Every Day Smoker Alcohol Use: None Drug Use: Marijuana General Adult EDM: Chief Complaint: LOWER EXT PAIN HPI: HPI: Patient is a 45 year old male presents via ems with the chief complaint of headache and leg pain. EMS [place] Patient ambulated into the ER. Triage complaint of headache and leg pain. Patient states he has right leg pain. When I asked when pain started he stated-- when I was in the ambulance. When asking patient when his headache started he stated "a while" When I asked patient how long "a while" is-- A day, week(s), month(s) or year(s) he continued to reply "a while" He states he was just at [facility] - "they did some test and didnt tell me why I have a headache". When asking patient about his headache-- location past treatments patient became very argumentative and stopped answering my questions. Patient no longer cooperative. Unable to examine the patient. Patient discharge. Review of Systems: Review of Systems: Unable to obtain - uncooperative Heart Score: C/O Chest Pain: N/A Risk Factors: Risk Factors: DM, Current or recent (<one month) smoker, HTN, HLP, family history of CAD, obesity. Risk Scores: Score 0 - 3: 2.5% MACE over next 6 weeks - Discharge Home Score 4 - 6: 20.3% MACE over next 6 weeks - Admit for Clinical Observation Score 7 - 10: 72.7% MACE over next 6 weeks - Early Invasive Strategies Allergies: Allergies: Allergies Coded Allergies Type Severity Reaction Last Updated Verified No Known Drug Allergies 07/05/13 No Physical Exam: PE: General: alert, no acute distress. Skin: warm, dry and intact. Head:: Normocephalic, atraumatic. Neck: Trachea midline. Eyes: EOMI, Normal conjunctiva, No drainage CARDIOVASCULAR: Regular rate and rhythm RESPIRATORY: No respiratory distress MUSCULOSKELETAL: Full range of motion of bilateral upper and lower extremities. GASTROINTESTINAL: Abdomen soft without rebound or guarding. NEUROLOGICAL: Alert and noted to person, place and time. No neurological deficits observed walked into the ER Psychiatric: uncooperative. Current Patient Data: Vital Signs: Vital Signs Date Time Temp Pulse Resp B/P (MAP) Pulse Ox O2 Delivery O2 Flow Rate FiO2 01/02/21 02:43 98.0 82 18 151/92 (111) 96 Room Air 98.0 EKG: EKG: [] Radiology/Procedures: Radiology/Procedures: [] Course & Med Decision Making: Course & Med Decision Making Pertinent Labs and Imaging studies reviewed. (See chart for details) [] Patient uncooperative Patient unwilling to provide history of present illness. Patient was discharged Dragon Disclaimer: [place] Disclaimer: This electronic medical record was generated, in whole or in part, using a voice recognition dictation system. Departure Departure Impression: Primary Impression: Headache Additional Impression: Leg pain Disposition: HOME / SELF CARE / HOMELESS Condition: STABLE Referrals: NO PCP (PCP) Patient Instructions: General Headache Without Cause, Leg Cramps [place] DO Jan 02, 2021 02:59
== END 2021-01-02 03:06 | disposition home or self-care (01) ==
LOC: ER 02:40
DX: R51.9 Headache, unspecified (principal); M79.604 Pain in right leg; E78.00 Pure hypercholesterolemia, unspecified; I10 Essential (primary) hypertension; F17.200 Nicotine dependence, unspecified, uncomplicated
CPT/HCPCS: 99283

== ENCOUNTER 2021-03-02 16:45 | Emergency (ER) | payer SELFPAY ==
[~2021-03-02] VITALS: Ht 182.9 cm; Wt 112.0 kg
[2021-03-02] MEDS ORDERED: IV NORMAL SALINE 1000ML BAG 1,000 ML IV SCH (17:00)
--- NOTE | 2021-03-02 17:02 | PHYS DOC ---
Past Medical History Past Medical History: High Cholesterol, Hypertension Additional Past Medical Histor: SLEEP APNEA Past Surgical History: Other Additional Past Surgical Histo: HERNIA Smoking Status: Current Every Day Smoker Alcohol Use: None Drug Use: Marijuana General Adult HPI: HPI: Patient is a 46 year old male who presents with was found by a good Catholic sitting on the side of the road. They saw him stumbling around. Patient states he was just "out wandering around." Patient states the only drugs that he does not smoke marijuana. He states he is slightly dizzy. States he has not drink any alcohol. He denies abdominal pain, nausea, vomiting, diarrhea, headache, chest pain, shortness of air, syncope, hitting his head, focal weakness, numbness or tingling. Patient does state that he has pain in his left palm of his hand. He rates his pain at a 5 out of 10. Review of Systems: Review of Systems: Constitutional: Denies fever or chills. [] Eyes: Denies change in visual acuity. [] HENT: Denies nasal congestion or sore throat. [] Respiratory: Denies cough or shortness of breath. [] Cardiovascular: Denies chest pain or edema. [] GI: Denies abdominal pain, nausea, vomiting, bloody stools or diarrhea. [] : Denies dysuria. [] Musculoskeletal: Denies back pain or + left hand joint pain. [] Integument: Denies rash. + Left palm redness [] Neurologic: Denies headache, focal weakness or sensory changes. + Dizziness [] Endocrine: Denies polyuria or polydipsia. [] Lymphatic: Denies swollen glands. [] Psychiatric: Denies depression or anxiety. [] Heart Score: C/O Chest Pain: No Risk Factors: Risk Factors: DM, Current or recent (<one month) smoker, HTN, HLP, family history of CAD, obesity. Risk Scores: Score 0 - 3: 2.5% MACE over next 6 weeks - Discharge Home Score 4 - 6: 20.3% MACE over next 6 weeks - Admit for Clinical Observation Score 7 - 10: 72.7% MACE over next 6 weeks - Early Invasive Strategies Allergies: Allergies: Allergies Coded Allergies Type Severity Reaction Last Updated Verified No Known Drug Allergies 07/05/13 No Physical Exam: PE: Constitutional: Well developed, well nourished, no acute distress, non-toxic appearance. [] HENT: Normocephalic, atraumatic, bilateral external ears normal, oropharynx moist, no oral exudates, nose normal. [] Eyes: PERRLA, EOMI, conjunctiva normal, no discharge. [] Neck: Normal range of motion, no tenderness, supple, no stridor. [] Cardiovascular:Heart rate regular rhythm, no murmur [] Lungs & Thorax: Bilateral breath sounds clear to auscultation [] Abdomen: Bowel sounds normal, soft, no tenderness, no masses, no pulsatile masses. [] Skin: Warm, dry, left palm erythema, no rash. [] Back: No tenderness, no CVA tenderness. [] Extremities: No tenderness, no cyanosis, no clubbing, ROM intact, no edema. [] Neurologic: Alert and oriented X 3, normal motor function, normal sensory function, no focal deficits noted. [] Psychologic: Affect normal, judgement normal, mood normal. [] EKG: EK and read by Dr. Robertson sinus rhythm and no STEMI Radiology/Procedures: Radiology/Procedures: [] Impression: [facility] [address] [place], [place] [id number] IMAGING REPORT Signed PATIENT: ALONDRA BERGER ACCOUNT: [id number] : 1975 LOCATION: ER AGE: 46 SEX: M EXAM STATUS: PRE ER ORD. PHYSICIAN: ALFRED PHILIP APRN REASON: dizziness, ams PROCEDURE: PORTABLE CHEST 1V Single view chest dated 03/02/2021 5:30 PM: COMPARISON: 05/09/2020 Clinical Indication: Dizziness and altered mental status. Findings: Single upright portable exam of the chest was performed. Heart size and mediastinal contours are within normal limits. Lungs are clear. No consolidation or pleural effusion. No pneumothorax. There are a few calcified granuloma, unchanged. IMPRESSION: No acute radiographic abnormality. Electronically signed by: Graham Lozano MD (03/02/2021 5:31 PM) [id number] DICTATED and SIGNED BY: GRAHAM LOZANO MD DATE: 03/02/21 [id number] [facility] [address] [place] [address] IMAGING REPORT Signed PATIENT: ALONDRA BERGER ACCOUNT: [id number] : 1975 LOCATION: ER AGE: 46 SEX: M EXAM STATUS: PRE ER ORD. PHYSICIAN: ALFRED PHILIP APRN REASON: dizziness PROCEDURE: CT HEAD WO CONTRAST Exam: CT head INDICATION: Dizziness TECHNIQUE: Sequential axial images through the head were obtained without the administration of IV contrast. Exposure: One or more of the following in the visualized dose reduction techniques were utilized for this examination: 1. Automated exposure control 2. Adjustment of the MA and/or KV according to patient size 3. Use of iterative of reconstructive technique Comparisons: 02/04/2020 FINDINGS: No focal parenchymal lesion or hemorrhage is identified. There is no midline shift or sulcal effacement. 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 No acute vascular territory infarction is identified. Nelson-white distinction is pr eserved. The ventricular system is within normal limits without compression hydrocephalus. The basal cisterns are well maintained. The visualized portions of the paranasal sinuses and mastoid air cells are well- pneumatized. No acute fractures. IMPRESSION: No acute intracranial abnormality. Electronically signed by: Amberly Givens MD (03/02/2021 5:12 PM) [facility] DICTATED and SIGNED BY: AMBERLY GIVENS MD DATE: 03/02/21 [id number] 0 [facility] [address] [facility] [place] [address] IMAGING REPORT Signed PATIENT: ALONDRA BERGER ACCOUNT: [id number] : 1975 LOCATION: ER AGE: 46 SEX: M EXAM STATUS: PRE ER ORD. PHYSICIAN: ALFRED PHILIP APRN REASON: pain after fall PROCEDURE: HAND LEFT 3V XR HAND_LEFT 3 VIEWS History: Pain after fall. Comparison: None. Technique: 3 views of the left hand. Findings: Osseous mineralization is normal. No fracture or dislocaton. Mild degenerative changes of the interphalangeal joints. Soft tissues are unremarkable. Impression: 1. No acute osseous abnormality of the left hand. Electronically signed by: Yong Lee MD (03/02/2021 5:37 PM) [facility] DICTATED and SIGNED BY: YONG LEE MD DATE: 03/02/21 [id number] 0 Course & Med Decision Making: Course & Med Decision Making Pertinent Labs and Imaging studies reviewed. (See chart for details) See HPI. Alert and oriented x4. Speaks in full clear sentences. Moving all extremities. There is some redness to his left palm of hand but there is no tenderness. He has full range of motion of all joints and extremities. No fo nicolás weaknesses or laxity to any joints. No abrasions or lacerations. He does have a healed over abrasion to the right knee. Lungs are clear to auscultation all lobes. Vital signs within normal limits. Patient is positive for PCP. He is given fluids. He has been awake, alert and oriented x4 and eating and drinking since he is been here. He has no complaints. Blood work is u nremarkable. Patient is stable and discharged home. [] Dragon Disclaimer: [place] Disclaimer: This electronic medical record was generated, in whole or in part, using a voice recognition dictation system. Departure Departure Impression: Primary Impression: PCP (phencyclidine) abuse Disposition: 01 HOME / SELF CARE / HOMELESS Condition: STABLE Referrals: NO PCP (PCP) Patient Instructions: Substance Abuse-Brief Additional Instructions: Follow-up with primary care provider if needed. Drink plenty of fluids. Stop using drugs. ALFRED PHILIP CERTIFIED SURGICAL TECH/FIRST ASSISTANT Mar 02, 2021 17:02
--- NOTE | 2021-03-02 17:15 | RAD ---
Exam: CT head INDICATION: Dizziness TECHNIQUE: Sequential axial images through the head were obtained without the administration of IV co ntrast. Exposure: One or more of the following in the visualized dose reduction techniques were utilized for this examination: 1. Automated exposure control 2. Adjustment of the MA and/or KV according to patient size 3. Use of iterative of reconstructive technique Comparisons: 02/04/2020 FINDINGS: No focal parenchymal lesion or hemorrhage is identified. There is no midline shift or sulcal effaceme nt. 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 No acute vascular territory infarction is identified. Nelson-white distinction is preserved. The ventricular system is within normal limits without compression hydrocephalus. The basal cisterns are well maintained. The visualized portions of the paranasal sinuses and mastoid air cells are well-pneumatized. No acute fractures. IMPRESSION: No acute intracranial abnormality. Electronically signed by: Amberly Vigil MD (03/02/2021 5:12 PM) [facility]
[2021-03-02 17:17] LABS: BASO % 1 % (0-3); EOS # 0.3 x10^3/uL (0.0-0.7); EOS % 3 % (0-3); HEMATOCRIT 39.9 % (39.0-53.0); HEMOGLOBIN 13.3 g/dL (13.0-17.5); LYMPH # 1.6 x10^3/uL (1.0-4.8); LYMPH % 19 % (24-48); MEAN CORPUSCULAR HEMOGLOBIN 28 pg (25-35); MEAN CORPUSCULAR HGB CONC 33 g/dL (31-37); MEAN CORPUSCULAR VOLUME 84 fL (79-100); MONO # 0.6 x10^3/uL (0.0-1.1); MONO % 7 % (0-9); NEUT # 5.8 x10^3/uL (1.8-7.7); NEUT % 70 % (31-73); PLATELET COUNT 332 x10^3/uL (140-400); RED BLOOD COUNT 4.77 x10^6/uL (4.30-5.70); RED CELL DISTRIBUTION WIDTH 13.4 % (11.5-14.5); WHITE BLOOD COUNT 8.2 x10^3/uL (4.0-11.0)
--- NOTE | 2021-03-02 17:33 | RAD ---
Single view chest dated 03/02/2021 5:30 PM: COMPARISON: 05/09/2020 Clinical Indication: Dizziness and altered mental status. Findings: Single upright portable exam of the chest was performed. Heart size and mediastinal contours are with in normal limits. Lungs are clear. No consolidation or pleural effusion. No pneumothorax. There are a few calcified granuloma, unchanged. IMPRESSION: No acute radiographic abnormality. Electronically signed by: Graham Lozano MD (03/02/2021 5:31 PM) [id number]
[2021-03-02 17:36] LABS: CALCIUM 9.1 mg/dL (8.5-10.1); GFR 97.8
--- NOTE | 2021-03-02 17:40 | RAD ---
XR HAND_LEFT 3 VIEWS History: Pain after fall. Comparison: None. Technique: 3 views of the left hand. Findings: Osseous mineralization is normal. No fracture or dislocaton. Mild degenerative changes of the interph alangeal joints. Soft tissues are unremarkable. Impression: 1. No acute osseous abnormality of the left hand. Electronically signed by: Yong Rios MD (03/02/2021 5:37 PM) [facility]
[2021-03-02 17:42] LABS: ALBUMIN 3.5 g/dL (3.4-5.0); ALBUMIN/GLOBULIN RATIO 0.9 (1.0-1.7); MAGNESIUM 2.1 mg/dL (1.8-2.4); TOTAL BILIRUBIN 0.4 mg/dL (0.2-1.0); TOTAL PROTEIN 7.5 g/dL (6.4-8.2)
[2021-03-02 17:45] LABS: ACETAMIN < 2 mcg/ml (10-30); ETHANOL < 10 mg/dL (0-10); SALIC < 2.8 mg/dL (2.8-20.0)
[2021-03-02] MEDS ORDERED: IV NORMAL SALINE 1000ML BAG 1,000 ML IV ONE (18:00)
[2021-03-02 19:18] VITALS: BP 168/70
[2021-03-02 20:21] LABS: BILIRUBIN,URINE NEGATIVE (NEG); CLARITY,URINE CLEAR; COLOR,URINE YELLOW; NITRITE,URINE NEGATIVE (NEG); PH,URINE 7.5 (<5.0-8.0); PROTEIN,URINE NEGATIVE (NEG-TRACE)
[2021-03-02 20:28] LABS: BARBITURATES NEG (NEG); BENZODIAZEPINES NEG (NEG); CANNABINOIDS NEG (NEG); COCAINE NEG (NEG); METHADONE NEG (NEG); OPIATES NEG (NEG); PHENCYCLIDINE POS (NEG)
[2021-03-02 20:29] LABS: AMPHETAMINE/METHAMPHETAMINE NEG (NEG); BACTERIA,URINE FEW /HPF (0-FEW); RBC,URINE 0 /HPF (0-2); WBC,URINE OCC /HPF (0-4)
--- NOTE | 2021-03-02 21:17 | EKG ---
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
== END 2021-03-02 20:46 | disposition home or self-care (01) ==
LOC: ER 16:45
DX: F16.10 Hallucinogen abuse, uncomplicated (principal); R42 Dizziness and giddiness; M79.642 Pain in left hand; R51.9 Headache, unspecified; F17.200 Nicotine dependence, unspecified, uncomplicated; E78.00 Pure hypercholesterolemia, unspecified; I10 Essential (primary) hypertension; R07.89 Other chest pain
CPT/HCPCS: 36415; 70450; 71045; 73130; 80053; 80307; 80329; 81001; 83735; 83880; 84484; 85025; 93005; 96360; 96361; 99285; G0480; J7030

== ENCOUNTER 2021-03-09 02:11 | Emergency (ER) | payer SELFPAY ==
[~2021-03-09] VITALS: Ht 188 cm; Wt 104.0 kg
[2021-03-09 02:16] VITALS: BP 173/90
--- NOTE | 2021-03-09 02:57 | PHYS DOC ---
Past Medical History Past Medical History: High Cholesterol, Hypertension Additional Past Medical Histor: SLEEP APNEA Past Surgical History: Other Additional Past Surgical Histo: HERNIA Smoking Status: Current Some Day Smoker Alcohol Use: None Drug Use: Marijuana General Adult EDM: Chief Complaint: LOWER EXT PAIN HPI: HPI: Patient is a 46 year old male presents by EMS for evaluation of headache and knee pain. Patient is a homeless male called 911 from living facility. Just prior to arrival patient was asked to leave the facility. Patient called 911 from parking lot with a chief complaint of headache and bilateral knee pain. Patient arrived via EMS he ambulated into the ER from the ambulance bay. Patient was roomed and shortly after fell asleep. When I examined the patient he was awakened from sleep. He has no neurological deficits. He moves all extremities passively and actively. Patient is in no acute distress. Based upon history of present illness and physical exam did not order any radiologic or laboratory analysis. Patient's pain was treated with Tylenol he was discharged. Review of Systems: Review of Systems: Constitutional: Denies fever or chills. [] Eyes: Denies change in visual acuity. [] HENT: Denies nasal congestion or sore throat. [] Respiratory: Denies cough or shortness of breath. [] Cardiovascular: Denies chest pain or edema. [] GI: Denies abdominal pain, nausea, vomiting, bloody stools or diarrhea. [] : Denies dysuria. [] Musculoskeletal: Denies back pain or joint pain. [Positive knee pain] Integument: Denies rash. [] Neurologic: Positive headache, denies focal weakness or sensory changes. [] Endocrine: Denies polyuria or polydipsia. [] Lymphatic: Denies swollen glands. [] Psychiatric: Denies depression or anxiety. [] Heart Score: C/O Chest Pain: N/A Risk Factors: Risk Factors: DM, Current or recent (<one month) smoker, HTN, HLP, family history of CAD, obesity. Risk Scores: Score 0 - 3: 2.5% MACE over next 6 weeks - Discharge Home Score 4 - 6: 20.3% MACE over next 6 weeks - Admit for Clinical Observation Score 7 - 10: 72.7% MACE over next 6 weeks - Early Invasive Strategies Allergies: Allergies: Allergies Coded Allergies Type Severity Reaction Last Updated Verified No Known Drug Allergies 07/05/13 No Physical Exam: PE: Constitutional: Well developed, well nourished, no acute distress, non-toxic appearance. [] HENT: Normocephalic, atraumatic, bilateral external ears normal, oropharynx moist, no oral exudates, nose normal. [] Eyes: PERRLA, EOMI, conjunctiva normal, no discharge. [] Neck: Normal range of motion, no tenderness, supple, no stridor. [] Cardiovascular:Heart rate regular rhythm, no murmur [] Lungs & Thorax: Bilateral breath sounds clear to auscultation [] Abdomen: Bowel sounds normal, soft, no tenderness, no masses, no pulsatile masses. [] Skin: Warm, dry, no erythema, no rash. [] Back: No tenderness, no CVA tenderness. [] Extremities: No tenderness, no cyanosis, no clubbing, ROM intact, no edema. [] Neurologic: Alert and oriented X 3, normal motor function, normal sensory function, no focal deficits noted. [] Psychologic: Affect normal, judgement normal, mood normal. [] EKG: EKG: [] Radiology/Procedures: Radiology/Procedures: [] Course & Med Decision Making: Course & Med Decision Making Pertinent Labs and Imaging studies reviewed. (See chart for details) [] Dragon Disclaimer: [place] Disclaimer: This electronic medical record was generated, in whole or in part, using a voice recognition dictation system. Departure Departure Impression: Primary Impression: Feared condition not demonstrated Disposition: 01 HOME / SELF CARE / HOMELESS Condition: STABLE Referrals: NO PCP (PCP) Patient Instructions: Exam, Normal, Adult [place] I DO Mar 09, 2021 02:57
[2021-03-09] MEDS ORDERED: ACETAMINOPHEN 325 MG TABLET. PO ONE (03:00)
== END 2021-03-09 03:33 | disposition home or self-care (01) ==
LOC: ER 02:11
DX: R51.9 Headache, unspecified (principal); M25.561 Pain in right knee; M25.562 Pain in left knee; I10 Essential (primary) hypertension; E78.00 Pure hypercholesterolemia, unspecified; F17.200 Nicotine dependence, unspecified, uncomplicated
CPT/HCPCS: 99283

== ENCOUNTER 2021-06-05 21:20 | Emergency (ER) | payer SELFPAY ==
[~2021-06-05] VITALS: Ht 182.9 cm; Wt 104.0 kg
[2021-06-05 22:25] VITALS: BP 162/94
--- NOTE | 2021-06-05 23:20 | PHYS DOC ---
Past Medical History Past Medical History: High Cholesterol, Hypertension Additional Past Medical Histor: SLEEP APNEA Past Surgical History: Other Additional Past Surgical Histo: HERNIA Smoking Status: Current Every Day Smoker Alcohol Use: None Drug Use: Marijuana General Adult EDM: Chief Complaint: VISION PROBLEM HPI: HPI: Patient is a 46 year old male who presents with blurry vision. Patient states that he just noticed the last couple days he feels like he is having blurry vision with distance. Patient states things have to be closer out for him to be able to see. Patient denies having vision problems in the past. Patient reports that both eyes. Weakness, headache, sensation changes. Neuro exam is negative. Patient's alert and oriented. Review of Systems: Review of Systems: ROS At least 10 ROS systems have been reviewed and are negative except as documented in the HPI. General: Negative except as outlined in HPI above. Skin: Negative except as outlined in HPI above. HEENT: Negative except as outlined in HPI above. Neck: Negative except as outlined in HPI above. Respiratory: Negative except as outlined in HPI above.. Cardiovascular: Negative except as outlined in HPI above. Abdomen: Negative except as outlined in HPI above. : Negative except as outlined in HPI above. Back/MSK: Negative except as outlined in HPI above. Neuro: Negative except as outlined in HPI above. Psych: Negative except as outlined in HPI above. Heart Score: C/O Chest Pain: No Risk Factors: Risk Factors: DM, Current or recent (<one month) smoker, HTN, HLP, family history of CAD, obesity. Risk Scores: Score 0 - 3: 2.5% MACE over next 6 weeks - Discharge Home Score 4 - 6: 20.3% MACE over next 6 weeks - Admit for Clinical Observation Score 7 - 10: 72.7% MACE over next 6 weeks - Early Invasive Strategies Allergies: Allergies: Allergies Coded Allergies Type Severity Reaction Last Updated Verified No Known Drug Allergies 07/05/13 No Physical Exam: PE: Constitutional: Well developed, well nourished, no acute distress, non-toxic appearance. [] HENT: Normocephalic, atraumatic, bilateral external ears normal, oropharynx moist, no oral exudates, nose normal. [] Eyes: PERRLA, EOMI, conjunctiva normal, no discharge. [] Neck: Normal range of motion, no tenderness, supple, no stridor. [] Cardiovascular:Heart rate regular rhythm, no murmur [] Lungs & Thorax: Bilateral breath sounds clear to auscultation [] Abdomen: Bowel sounds normal, soft, no tenderness, no masses, no pulsatile masses. [] Skin: Warm, dry, no erythema, no rash. [] Back: No tenderness, no CVA tenderness. [] Extremities: No tenderness, no cyanosis, no clubbing, ROM intact, no edema. [] Neurologic: Alert and oriented X 3, normal motor function, normal sensory function, no focal deficits noted. [] Psychologic: Affect normal, judgement normal, mood normal. [] Current Patient Data: Vital Signs: Vital Signs Date Time Temp Pulse Resp B/P (MAP) Pulse Ox O2 Delivery O2 Flow Rate FiO2 06/05/21 22:25 98.7 81 16 162/94 (116) 94 Room Air 98.7 EKG: EKG: [] Radiology/Procedures: Radiology/Procedures: [] Course & Med Decision Making: Course & Med Decision Making Pertinent Labs and Imaging studies reviewed. (See chart for details) [] 46-year-old male presents with complaints of bilateral, blurry vision. Neuro exam is negative. Orthostatics were unremarkable. Hemodynamically stable. Discussed results with patient. Advised patient he needs to follow-up with an director of teacher education. Discussed return precautions. [place] Disclaimer: [place] Disclaimer: This electronic medical record was generated, in whole or in part, using a voice recognition dictation system. Departure Departure Impression: Primary Impression: Blurry vision, bilateral Disposition: 01 HOME / SELF CARE / HOMELESS Condition: STABLE Referrals: NO PCP (PCP) Patient Instructions: Eye - Blurred Vision Additional Instructions: You were seen in the emergency room for complaints of blurry vision. You performed a visual acuity test on you which was negative. You had no other symptoms. Please follow-up with in a eye doctor to have your vision checked. Return emergency room if you have worsening symptoms or concerns EMERGENCY DEPARTMENT GENERAL DISCHARGE INSTRUCTIONS Thank you for coming to Emergency Department (ED) today and trusting us with you care. We trust that you had a positive experience in our Emergency Department. If you wish to speak to the department management, you may call the Director at [phone]. YOUR FOLLOW UP INSTRUCTIONS ARE FOLLOWS: 1. Do you have a private Doctor? If you do not have a private doctor, please ask for a resource list of physicians or clinics that may be able to assist you with follow up care. 2. The Emergency Physicain has interpreted your x-rays. The X-Ray specialist will also review them. If there is a change in the findings, you will be notified in 48 hours when at all possible. 3. A lab test or culture has been done, your results will be reviewed and you will be notified if you need a change in treatment. ADDITIONAL INSTRUCTIONS AND INFORMATION: 1. Your care today has been supervised by a physician who is specially trained in emergency care. Many problems require more than one evaluation for a complete diagnosis and treatment. We recommend that you schedule your follow up appointment as recommended to ensure complete treatment of you illness or injury. If you are unable to obtain follow up care and continue to have a problem, or if your condition worsens, we recommend that you return to the ED. 2. We are not able to safely determine your condition over the phone nor are we able to give sound medical advice over the phone. For these safety reasons, if you call for medical advice we will ask you to come to the ED for further evaluation. 3. If you have any questions regarding these discharge instructions please call the ED at [phone]. SAFETY INFORMATION: In the interest of safety, wellness, and injury prevention; we encourage you to wear your sealbelt, if you smoke; quite smoking, and we encourage family to use a protective helmet for bicycling and other sporting events that present an increased risk for head injury. IF YOUR SYMPTOMS WORSEN OR NEW SYMPTOMS DEVELOP, OR YOU HAVE CONCERNS ABOUT YOUR CONDITION; OR IF YOUR CONDITION WORSENS WHILE YOU ARE WAITING FOR YOUR FOLLOW UP APPOINTMENT; EITHER CONTACT YOUR PRIMARY CARE DOCTOR, THE PHYSICIAN WHOSE NAME AND NUMBER YOU WERE GIVEN, OR RETURN TO THE ED IMMEDIATELY. MELANIE DINERO APRN Jun 05, 2021 23:20
== END 2021-06-05 23:59 | disposition home or self-care (01) ==
LOC: ER 21:20
DX: H53.8 Other visual disturbances (principal); E78.00 Pure hypercholesterolemia, unspecified; I10 Essential (primary) hypertension; F17.200 Nicotine dependence, unspecified, uncomplicated
CPT/HCPCS: 99283